=== PATIENT | female | born 1985 | race Two or more races ===

== ENCOUNTER 2020-06-19 09:34 | Outpatient (REF) | payer OTHER, SELFPAY | END 2020-06-19 09:35 | disposition home or self-care (01) | LOC: HO.LAB 09:34 | PROVIDERS: PCP Internal Medicine; Visit Provider Internal Medicine | DX: Z20.828 Contact with and (suspected) exposure to other viral communicable diseases (principal) | CPT/HCPCS: 87635 ==

== ENCOUNTER 2020-07-18 12:42 | Outpatient (REF) | payer OTHER, SELFPAY | END 2020-07-18 12:43 | disposition home or self-care (01) | LOC: HO.LAB 12:42 | PROVIDERS: Visit Provider Internal Medicine | DX: Z20.828 Contact with and (suspected) exposure to other viral communicable diseases (principal) | CPT/HCPCS: C9803; U0003 ==

== ENCOUNTER → 2021-01-18 08:39 | Outpatient (BNVA) | payer OTHER, SELFPAY | PROVIDERS: PCP Internal Medicine; Visit Provider Surgery | DX: E66.01 Morbid (severe) obesity due to excess calories (principal); Z68.41 Body mass index [BMI] 40.0-44.9, adult | CPT/HCPCS: 99202 ==

== ENCOUNTER → 2021-01-30 08:16 | Outpatient (BNVA) | payer OTHER, SELFPAY | PROVIDERS: PCP Internal Medicine; Visit Provider Surgery | DX: E66.01 Morbid (severe) obesity due to excess calories (principal); Z68.41 Body mass index [BMI] 40.0-44.9, adult | CPT/HCPCS: 99212 ==

== ENCOUNTER 2021-07-02 22:03 | Emergency (ER) | payer OTHER, SELFPAY ==
[2021-07-02 22:23] VITALS: BP 138/97; PULSE 106; RESP 20; TEMP 37.2; O2SAT 98; BMI 41.1
[2021-07-02 23:12] LABS: Influenza A PCR NEGATIVE (Negative); Influenza B PCR NEGATIVE (Negative); Resp Syncy Virus RNA Qual PCR POSITIVE (Negative); SARS COV2 PCR INHOUSE NEGATIVE (Negative)
--- NOTE | 2021-07-02 23:53 | ED_ITS ---
HPI - URI/Sore Throat General Chief Complaint: Upper Respiratory Symptoms Stated Complaint: congestion, ear pain Time Seen by Provider: 07/02/21 23:00 Source: patient Mode of arrival: ambulatory Limitations: no limitations History of Present Illness HPI Narrative: Patient vaccinated against COVID in 01/19 , complaining of cold congestion earache for last 2 days dry cough no fever no rash. Patient niece were positive for RSV for last few days. Patient also complaining of right ear pain feels right ear is full for last 2 days Related Data Home Medications Medication Instructions Recorded Confirmed ibuprofen 600 mg tablet 600 mg PO TID 01/18/21 01/30/21 Previous Rx's Medication Instructions Recorded azithromycin 250 mg tablet 250 mg PO DAILY 4 Days #4 tab 07/03/21 (Zithromax Z-William) codeine 10 mg-guaifenesin 100 mg/5 10 ml PO Q4-6H PRN #237 ml 07/03/21 mL oral liquid Allergies Allergy/AdvReac Type Severity Reaction Status Date / Time Penicillins [PENICILLINS] Allergy Unknown PASSED OUT Verified 07/02/21 22:53 Review of Systems Review of Systems: Yes all other systems are reviewed and are negative [facility] Past Medical History Medical History Morbid obesity due to excess calories Surgical History History of extraction of renal calculus Family History Family History Mother Hypertension Heart disease Anxiety Asthma Father No problems noted. Brother No problems noted. Brother No problems noted. Brother No problems noted. Brother No problems noted. Brother No problems noted. Sister No problems noted. Sister No problems noted. Sister No problems noted. Sister No problems noted. Sister No problems noted. Sister No problems noted. Son No problems noted. Social History Social History Alcohol intake: never Patient Tobacco Use Status: Never used Tobacco Advance Directives: No Patient : No Physical Exam Vital Signs: Vital Signs: Last Vital Signs Temp 98.9 F 07/02/21 22:23 Pulse 106 H 07/02/21 22:23 Resp 20 07/02/21 22:23 BP 138/97 H 07/02/21 22:23 Pulse Ox 98 07/02/21 22:23 Body Mass Index 41.1 Appearance: Alert. Oriented X3. No acute distress. Eyes: No pallor or icterus ENT: Pharynx normal. Oral Mucosa moist tympanic membrane intact, R TM is erythematous and dull Neck: Normal inspection. Neck supple. CVS: Normal heart rate and rhythm. Pulses normal. Respiratory: No respiratory distress. Equal air entry bilateral, no wheezing/rales/rhonchi Abdomen: Soft and nontender. Bowel sounds are present, no mass palpable, no CVA tenderness Skin: Skin warm and dry. Normal skin color. Normal skin turgor. Extremities: No lower extremity edema. No calf tenderness Neuro: Oriented X 3. MDM - URI/Sore Throat Differential Diagnosis Differential diagnosis: Likely upper respiratory infection and otitis media Lab Data Attestation: I reviewed the patient's lab results. Labs: Lab Results 07/02/21 Range/Units 22:30 Influenza Type A (PCR) NEGATIVE (Negative) Influenza Type B (PCR) NEGATIVE (Negative) RSV RNA Qual (PCR) POSITIVE A (Negative) SARS-CoV-2 RNA (RT-PCR) NEGATIVE (Negative) Discharge Plan Discharge Clinical Impression: RSV bronchitis Otitis media, right Qualifiers: Otitis media type: suppurative Chronicity: acute Recurrence: non-recurrent Spontaneous tympanic membrane rupture: without spontaneous rupture Qualified Code(s): H66.001 - Acute suppurative otitis media without spontaneous rupture of ear drum, right ear Patient Disposition: Home, Self-Care Instructions: Respiratory Syncytial Virus (ED), Ear Infection (ED) Additional Instructions: Rest at home Cough syrup as advised Antibiotic for right ear infection Tylenol/Motrin for fever Follow with PCP if not better Prescriptions: New codeine-guaifenesin 10-100 mg/5 mL liquid 10 ml PO Q4-6H PRN (Reason: cough) Qty: 237 RF: 0 azithromycin [Zithromax Z-William] 250 mg tablet 250 mg PO DAILY 4 Days Qty: 4 RF: 0 No Action ibuprofen 600 mg tablet 600 mg PO TID RF: 0
[2021-07-03] MEDS: Azithromycin 500 MG TABLET PO (00:16)
[2021-07-03 00:27] VITALS: BP 145/90; PULSE 91; RESP 17; O2SAT 97
== END 2021-07-03 00:29 | disposition home or self-care (01) ==
PROVIDERS: Emergency Provider Internal Medicine; PCP Internal Medicine
DX: J20.5 Acute bronchitis due to respiratory syncytial virus (principal); H66.001 Acute suppurative otitis media without spontaneous rupture of ear drum, right ear; Z20.822 Contact with and (suspected) exposure to COVID-19
CPT/HCPCS: 0241U; 36415; 99283; 99284

== ENCOUNTER → 2021-09-25 07:56 | Outpatient (BNVA) | payer OTHER, SELFPAY | PROVIDERS: PCP Internal Medicine; Referring Provider Internal Medicine; Visit Provider Physician Assistant ==

== ENCOUNTER → 2021-10-08 10:26 | Outpatient (BNVA) | payer OTHER, SELFPAY | PROVIDERS: PCP Internal Medicine; Referring Provider Internal Medicine; Visit Provider Physician Assistant Surgical ==

== ENCOUNTER 2021-12-18 01:23 | Emergency (ER) | payer OTHER, SELFPAY ==
[2021-12-18 01:32] VITALS: BP 131/91; PULSE 75; RESP 16; TEMP 36.2; O2SAT 99; BMI 38.9
[2021-12-18] MEDS: diphenhydrAMINE HCL 25 MG TABLET 50 MG PO (02:02)
--- NOTE | 2021-12-18 02:04 | PC.NURSE ---
at bedside for primary eval.
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
[2021-12-18] MEDS: predniSONE 10 MG TABLET 50 MG PO (02:35)
[2021-12-18] MEDS: Famotidine 20 MG TABLET PO (02:35)
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
== END 2021-12-18 03:50 | disposition home or self-care (01) ==
PROVIDERS: Emergency Provider Student in an Organized Health Care Education/Training Program; PCP Internal Medicine
DX: L50.0 Allergic urticaria (principal); R06.02 Shortness of breath; Z79.899 Other long term (current) drug therapy
CPT/HCPCS: 99283; Q0163

== ENCOUNTER 2022-01-02 01:15 | Emergency (ER) | payer OTHER, SELFPAY ==
[2022-01-02 01:29] VITALS: BP 141/91; PULSE 84; RESP 20; TEMP 36.6; O2SAT 99; BMI 41.1
[2022-01-02 01:36] LABS: Appearance Urine CLEAR; Color Urine YELLOW; Glucose Urine UA NEG (NEG); Leukocyte Esterase Urine NEG (NEG); Nitrite Urine NEG (NEG); Specific Gravity - Urine >= 1.030 (1.005-1.025); Urine Blood NEG (NEG); Urine Ketones NEG (NEG); Urine Protein NEG (NEG-TRACE)
[2022-01-02 01:42] LABS: RBC Urine 0 /HPF (0); Squamous Epithelial Cell Urine 2+ /LPF
[2022-01-02 01:43] LABS: Bacteria Urine 1+ /LPF; Mucus Urine 3+ /LPF
--- NOTE | 2022-01-02 04:20 | ED_ITS ---
HPI - General Adult General Chief complaint: Dental/Oral Stated complaint: dental pain Time Seen by Provider: 01/02/22 04:10 Source: patient Mode of arrival: ambulatory History of Present Illness HPI narrative: 36-year-old female who presents with complaints of left lower tooth pain and states that she is on a waiting list to get the tooth removed. She denies any associated difficulty breathing, swallowing, fevers, or chills. She then proceeds to states that she is having some lower abdominal discomfort and states that she has had 2 positive test but denies any vaginal bleeding. Related Data Home Medications Medication Instructions Recorded Confirmed ibuprofen 600 mg tablet 600 mg PO TID 01/18/21 01/30/21 Previous Rx's Medication Instructions Recorded azithromycin 250 mg tablet 250 mg PO DAILY 4 Days #4 tab 07/03/21 (Zithromax Z-William) codeine 10 mg-guaifenesin 100 mg/5 10 ml PO Q4-6H PRN #237 ml 07/03/21 mL oral liquid Allergies Allergy/AdvReac Type Severity Reaction Status Date / Time Penicillins [PENICILLINS] Allergy Unknown PASSED OUT Verified 07/02/21 22:53 Review of Systems Review of Systems: Pertinent positives and negatives as stated in HPI 10 point review of systems is otherwise negative. [facility] Past Medical History Source: nursing notes reviewed Medical History Morbid obesity due to excess calories Surgical History History of extraction of renal calculus Family History Family History Mother Hypertension Heart disease Anxiety Asthma Father No problems noted. Brother No problems noted. Brother No problems noted. Brother No problems noted. Brother No problems noted. Brother No problems noted. Sister No problems noted. Sister No problems noted. Sister No problems noted. Sister No problems noted. Sister No problems noted. Sister No problems noted. Son No problems noted. Social History Social History Alcohol intake: never Patient Tobacco Use Status: Never used Tobacco Advance Directives: No Advance Directives Information Provided: Yes Physical Exam ED Vital Signs: Vital Signs - 24 hr 05/04/22 01:29 Temperature 97.9 F Pulse Rate 84 Respiratory Rate 20 Blood Pressure 141/91 H Pulse Oximetry 99 BMI result Body Mass Index 41.1 VITAL SIGNS: Reviewed. GENERAL: Well developed, well nourished, in no acute distress. HEAD: Normocephalic/atraumatic EYES: PERRLA, EOMI EARS: Ext canals without abnormality OROPHARYNX: no oral lesions noted, posterior pharynx clear, there is an obvious cavity in the left lower 1st molar without gingival edema, no trismus NECK: Supple, no adenopathy LUNGS: Normal breath sounds. No adventitious sounds or accessory muscle use. SpO2<99> CARDIOVASCULAR: Regular rate and rhythm without noted murmurs, no JVD or lower extremity edema. ABDOMEN: Soft, non-tender, non-distended with bowel sounds. SKIN: Inspection of the skin reveals no rashes NEUROLOGIC: Alert and oriented x 4. Strength and sensation to light touch were grossly intact x 4. Course Course Course Narrative: 36-year-old female with history and clinical presentation consistent with toothache and obvious dental caries. On evaluation of patient for UTI or urine there is no infection of the urine and patient's beta-hCG is 129. Patient was given Lollicaines for her tooth pain. Medical Decision Making Lab Data Labs: Lab Results 01/02/22 01/02/22 Range/Units 01:31 05:05 Beta HCG, Quant 129 mIU/mL Urine Color YELLOW Urine Appearance CLEAR Urine pH 6.0 (5.0-8.0) Ur Specific Belle >= 1.030 H (1.005-1.025) Urine Protein NEG (NEG-TRACE) MG/DL Urine Glucose (UA) NEG (NEG) MG/DL Urine Ketones NEG (NEG) MG/DL Urine Blood NEG (NEG) Urine Nitrite NEG (NEG) Ur Leukocyte Esterase NEG (NEG) Urine RBC 0 (0) /HPF Urine WBC 1-4 (0-4) /HPF Ur Squamous Epith Cells 2+ /LPF Urine Bacteria 1+ /LPF Urine Mucus 3+ /LPF Discharge Plan Discharge Clinical Impression: Toothache, Dental caries, Patient Disposition: Home, Self-Care Instructions: Tooth Extraction (DC), Toothache (ED), (ED) Additional Instructions: 1. You are , you should start taking vitamins. 2. Take [id number] Tylenol as needed for tooth pain and follow-up with your dentist for definitive treatment of your tooth. Return to the ER for worsening symptoms. Prescriptions: No Action codeine-guaifenesin 10-100 mg/5 mL liquid 10 ml PO Q4-6H PRN (Reason: cough) Qty: 237 0RF azithromycin [Zithromax Z-William] 250 mg tablet 250 mg PO DAILY 4 Days Qty: 4 0RF Rx Instructions: start on day 2 of therapy ibuprofen 600 mg tablet 600 mg PO TID 0RF
[2022-01-02 05:34] LABS: HCG Quantitative 129 mIU/mL
[2022-01-02] MEDS: Acetaminophen 325 MG TABLET 975 MG PO (06:07)
== END 2022-01-02 06:10 | disposition home or self-care (01) ==
PROVIDERS: Emergency Provider Student in an Organized Health Care Education/Training Program
DX: O99.619 Diseases of the digestive system complicating pregnancy, unspecified trimester (principal); K02.9 Dental caries, unspecified; Z3A.00 Weeks of gestation of pregnancy not specified
CPT/HCPCS: 36415; 81001; 84702; 99283

== ENCOUNTER 2022-01-12 08:30 | Emergency (ER) | payer OTHER, SELFPAY ==
--- NOTE | ~2022-01-12 | US_ITS ---
EXAMINATION: US OBSTETRICAL ULTRASOUND CLINICAL INFORMATION: 6 weeks . Heavy vaginal bleeding. COMPARISON: None. LMP: 10/30/2021. Gestational age by maternal dates is 10 weeks 4 days. Estimated date of delivery by maternal dates is 08/06/2022. TECHNIQUE: Transabdominal and transvaginal first trimester OB ultrasound. Transvaginal exam was performed for better visualization of the gestational sac and ovaries. FINDINGS: The uterus is normal in size and shape. There is an intrauterine gestational sac and yolk sac. Mean sac diameter suggests gestational age of 5 weeks 3 days. No pole is seen. This may be due to early gestational age. The maternal ovaries are normal. There is no fluid in the pelvis. US/US OB pelvic and transvaginal IMPRESSION: Intrauterine gestational sac and yolk sac. Mean sac diameter suggests gestational age of 5 weeks 3 days. This is behind date from LMP. No pole seen.
[2022-01-12 09:28] VITALS: BP 130/80; PULSE 79; RESP 18; TEMP 37; O2SAT 100; BMI 38.5
[2022-01-12 09:49] LABS: MANUAL DIFF FLAG NO
[2022-01-12 09:52] LABS: Basophils Percent Auto 0.4 % (0-2); Eosinophils Absolute Auto 0.2 X10*3/uL (0.0-0.4); Eosinophils Percent Auto 1.8 % (0-4); Hematocrit 40.1 % (37.0-47.0); Hemoglobin 13.1 g/dl (12.0-16.0); Imm Gran Abs Auto 0.05 X10*3/uL (0.00-0.03); Imm Gran Pct Auto 0.5 % (0.0-0.4); Lymphocytes Percent Auto 19.2 % (20-40); Mean Corpuscular HGB Conc 32.7 g/dl (31.0-35.0); Mean Corpuscular Hemoglobin 28.9 pg (27.0-33.0); Mean Corpuscular Volume 88.5 fL (80.0-98.0); Mean Platelet Volume 8.5 fL (9.4-12.3); Monocytes Absolute Auto 0.8 X10*3/uL (0.1-1.2); Monocytes Percent Auto 7.1 % (2-11); Neutrophils Absolute Auto 7.5 x10*3/uL (2.0-8.3); Platelet Count 390 X10*3/uL (160-400); Red Blood Count 4.53 X10*6/uL (4.20-5.50); Red Cell Distribution Width 13.6 % (11.0-16.0); White Blood Count 10.5 X10*3/uL (4.8-10.8)
[2022-01-12 10:12] LABS: Alanine Aminotransferase 27 U/L (0-31); Albumin Level 3.4 g/dL (3.5-5.0); Alkaline Phosphatase 69 U/L (39-117); Anion Gap 10 (12-20); Aspartate Amino Transferase 20 U/L (5-31); Bilirubin Total 0.5 mg/dL (0.0-1.0); Blood Urea Nitrogen 11 mg/dL (9-16); Calcium 8.9 mg/dL (8.4-10.2); Carbon Dioxide 24 mmol/L (22-29); Chloride 107 mmol/L (96-108); Creatinine Clr Calc Pharmacy 131.5; Estimated Glomerular Filt Rate > 60; Glucose Random 86 mg/dL (60-115); Potassium 4.4 mmol/L (3.3-5.1); Sodium 137 mmol/L (135-145); Total Protein 7.3 g/dL (6.5-8.0)
[2022-01-12 10:18] LABS: HCG Quantitative 4214 mIU/mL
[2022-01-12 10:20] LABS: Appearance Urine CLOUDY; Color Urine YELLOW; Glucose Urine UA NEG (NEG); Leukocyte Esterase Urine NEG (NEG); Nitrite Urine NEG (NEG); PH 6.5 (5.0-8.0); Specific Gravity - Urine 1.025 (1.005-1.025); UACC Culture Trigger NO; Urine Blood 3+ (NEG); Urine Ketones NEG (NEG); Urine Protein 1+ MG/DL (NEG-TRACE)
[2022-01-12 10:30] LABS: Bacteria Urine 1+ /LPF; Mucus Urine 1+ /LPF; Squamous Epithelial Cell Urine 2+ /LPF; WBC Urine 0 /HPF (0-4)
--- NOTE | 2022-01-12 14:23 | ED_ITS ---
HPI - General Chief complaint: Vaginal Bleeding Stated complaint: 6wks preg heavy vaginal bleeding Time Seen by Provider: 01/12/22 12:07 Source: patient Mode of arrival: ambulatory Limitations: no limitations History of Present Illness HPI Narrative: 36-year-old female with a past medical history of obesity who is currently [id number] with her last menstrual period on November 04 presenting to the ED with complaints of suprapubic/left lower quadrant abdominal cramping with associated intermittent vaginal bleeding That she noticed this morning. She reports that when she wiped she noticed some blood on the toilet tissue and to clots in the toilet. And she reports when she recently just used the bathroom a she was here in the waiting room she had brown colored blood no further clots. She denies any abdominal cramping at this time. She reports approximately 2-3 year she is approximately 4 and half months and had a miscarriage unknown reason why. Reports she has never had any other pregnancies other than the 1 today and the 1 where she had the miscarriage. She reports that she went to her primary care provider at [facility] on Friday due to having some vaginal bleeding that they and they did an ultrasound and they were able to see the sac and they did blood work although they told her that she would need repeat blood work and ultrasound in 2 weeks otherwise she has not seen anyone else for this . She denies any fevers, chills, dizziness, headaches, neck pain / stiffness, trouble swallowing or breathing, chest pain or shortness of breath, dyspnea on exertion, orthopnea, palpitations, paresthesias, back pain, dysuria, abnormal vaginal discharge, black or bloody stools, lower extremity edema or calf tenderness, recent travel or sick contacts or any other symptoms complaints or concerns at this time. MD Complaint: abdominal pain and vaginal bleeding Onset (ago): hour(s) Pain Consistency: intermittent Severity: mild Quality: Cramping Relieving factors: none Exacerbating factors: none Associated symptoms: vaginal bleeding and abdominal pain Vaginal discharge: none Vaginal bleeding: light Date of Last Menstrual Period: 11/04/21 Patient : Yes OB History - Previous Pregnancies: miscarriage Related Data : 2 Para: 0 Total number of abortions (spontaneous and elective): 1 Home Medications Medication Instructions Recorded Confirmed ibuprofen 600 mg tablet 600 mg PO TID 01/18/21 01/30/21 Previous Rx's Medication Instructions Recorded azithromycin 250 mg tablet 250 mg PO DAILY 4 Days #4 tab 07/03/21 (Zithromax Z-William) codeine 10 mg-guaifenesin 100 mg/5 10 ml PO Q4-6H PRN #237 ml 07/03/21 mL oral liquid Allergies Allergy/AdvReac Type Severity Reaction Status Date / Time Penicillins [PENICILLINS] Allergy Unknown PASSED OUT Verified 01/12/22 09:28 Review of Systems Review of Systems: Constitutional : No Fever, No Chills ENT/Mouth : No sore throat, No Rhinorrhea Eyes: No Eye Pain, No Redness Cardiovascular : No Chest Pain, No SOB Respiratory : No Cough, No Sputum, No Wheezing Gastrointestinal : No Nausea, No Vomiting, No Diarrhea, + abdominal pain, Genitourinary : + irregular bleeding, No Dysuria, No Urinary Frequency, No pelvic pain, No vaginal discharge, no hematuria Musculoskeletal : No Myalgias Skin : No rash Neuro : No Weakness, No Headache Psych : No Anxiety/Panic, No Depression Heme/Lymph: No bruising, No Lymphadenopathy Endocrine : No Polyuria, No Polydipsia Yes all other systems are reviewed and are negative [facility] Past Medical History Attestation statement: The following information was validated with the patient. Medical History Morbid obesity due to excess calories Surgical History History of extraction of renal calculus : 2 Para: 0 Total number of abortions (spontaneous and elective): 1 Date of Last Menstrual Period: 11/04/21 Family History Family History Mother Hypertension Heart disease Anxiety Asthma Father No problems noted. Brother No problems noted. Brother No problems noted. Brother No problems noted. Brother No problems noted. Brother No problems noted. Sister No problems noted. Sister No problems noted. Sister No problems noted. Sister No problems noted. Sister No problems noted. Sister No problems noted. Son No problems noted. Social History Social History Alcohol intake: never Patient Tobacco Use Status: Never used Tobacco Advance Directives: No Advance Directives Information Provided: No Patient : Yes Physical Exam Vital Signs: Vital Signs: Last Vital Signs Temp 98.4 F 01/12/22 15:27 Pulse 93 01/12/22 15:27 Resp 18 01/12/22 15:27 BP 123/72 01/12/22 15:27 Pulse Ox 100 01/12/22 15:27 BMI result Body Mass Index 38.5 vital signs have been reviewed as normal and appeared to be correct. Blood pressure normal. Heart rate normal. Respiration rate normal. Temperature normal. Oxygen saturation normal. Appearance: Alert. Oriented X3. No acute distress. Head: Normal external exam. Normocephalic. Atraumatic. Eyes: PERRLA. EOMI. Conjunctiva and sclera normal. Eyelids normal. ENT: Pharynx normal. Uvula midline. Moist mucous membranes. No trismus noted. No drooling noted. No muffled voice noted. Neck: Normal inspection. Neck supple. FROM. No adenopathy. Thyroid Normal. No meningeal signs. No neck mass noted. CVS: Normal heart rate and rhythm. Heart sound normal. No murmurs noted. Pulses normal throughout. Respiratory: No respiratory distress. Painless inspiration. Breath sounds normal. No wheezes/rales/rhonchi noted. Chest nontender. No accessory muscle usage noted or decreased air movement noted. Abdomen: Soft and nontender. Bowel sounds normal in all 4 quadrants. No distention noted. No organomegaly noted. No visible injury noted. : Supervised by PALOMO Osuna, Normal external appearance of urethra. No lesions/lacerations or discharge or tenderness noted. Speculum exam normal linda earance/palpation of vagina normal. patient does have some dark brown/ maroon colored vaginal discharge/ bleeding although no active bleeding in the cervical eyes is completely closed and no active bleeding from the cervical Os. otherwise no other abnormal discharge noted.Otherwise no vaginal erythema. No foreign bodies noted. No vaginal laceration/lesions or active bleeding noted. No tissue present in vagina. No vaginal mass noted. No vaginal swelling noted. No vaginal tenderness noted. Normal appearance of cervix. Normal palpation of cervix. Cervical os is closed. No abnormal cervical discharge noted. No cervical lesion/mass. No Bartholin cyst noted. No cervical motion tenderness noted. Negative chandelier sign. Normal bimanual exam. Uterine size normal. Bladder normal to palpation. Uterine consistency normal. Normal cervical palpation. Uterine mobility normal. Uterine shape normal. Normal adnexa. Normal rectovaginal exam. Back: No CVA tenderness. Full range of motion noted. Skin: Skin warm and dry. Normal skin color. Normal skin turgor. No rashes/lesions/lacerations noted. Extremities: No lower extremity edema. Extremities exhibit normal range of mot ion. Extremities nontender. Neuro: Oriented X 3. No motor deficit. No sensory deficit. Reflexes normal. Course Course Course Narrative: 14:15pm - 36-year-old female who is currently [id number] with her LMP on November 04 presenting to the ED with complaints of suprapubic/left lower quadrant abdominal cramping with associated intermittent vaginal bleeding That she noticed this morning. She reports that when she wiped she noticed some blood on the toilet tissue and to clots in the toilet. And she reports when she recently just used the bathroom a she was here in the waiting room she had brown colored blood no further clots. She denies any abdominal cramping at this time. She reports approximately 2-3 year she is approximately 4 and half months and had a miscarriage unknown reason why. Reports she has never had any other pregnancies other than the 1 today and the 1 where she had the miscarriage. She reports that she went to her primary care provider at [facility] on Friday due to having some vaginal bleeding that they and they did an ultrasound and they were able to see the sac and they did blood work although they told her that she would need repeat blood work and ultrasound in 2 weeks otherwise she has not seen anyone else for this . - Labs reviewed which were taken while the patient was in the waiting room and revealed a serum quant of 4214 otherwise all other labs are within normal limits. Patient's serum quant is 01/02/2022 was 129. UA today reveals blood otherwise no evidence of UTI. Awaiting OB transvaginal/pelvic ultrasound Reevaluation(s) Reevaluation #1: - Ultrasound revealed intrauterine gestational sac and yolk sac with a gestational age of 5 weeks and 3 days although no pole was seen. - Therefore consulted with Dr. Baker OBGYN and he recommended giving the patient has spontaneous warnings and to come back if vaginal bleeding increases along with follow-up appointment in 2 days with repeat hCG levels. Awaiting the patient's blood type for possible RHOgam. patient understands agrees with this plan. Time: 14:57 Reevaluation #2: Patient's blood type is O-positive. Therefore no RHOGam indicated at this time. Will DC home with spontaneous warnings and instructions return if vaginal bleeding increases and to follow-up with PCP/ OBGYN in 2 days for repeat hCG levels. Patient understands agrees with this plan. Time: 15:55 MDM - OB/Uterine Contractions Medical Records Attestation: I reviewed the patient's medical records. Lab Data Attestation: I reviewed the patient's lab results. Result diagrams: 01/12/22 09:39 01/12/22 09:39 Labs: Lab Results 01/12/22 01/12/22 01/12/22 Range/Units 09:39 09:39 10:03 WBC 10.5 (4.8-10.8) X10*3/uL RBC 4.53 (4.20-5.50) X10*6/uL Hgb 13.1 (12.0-16.0) g/dl Hct 40.1 (37.0-47.0) % MCV 88.5 (80.0-98.0) fL MCH 28.9 (27.0-33.0) pg MCHC 32.7 (31.0-35.0) g/dl RDW 13.6 (11.0-16.0) % Plt Count 390 (160-400) X10*3/uL MPV 8.5 L (9.4-12.3) fL Immature Gran % (Auto) 0.5 H (0.0-0.4) % Neut % (Auto) 71.0 (45-73) % Lymph % (Auto) 19.2 L (20-40) % Stanton % (Auto) 7.1 (2-11) % Eos % (Auto) 1.8 (0-4) % Baso % (Auto) 0.4 (0-2) % Lymph # (Auto) 2.0 (1.2-4.9) X10*3/uL Stanton # (Auto) 0.8 (0.1-1.2) X10*3/uL Eos # (Auto) 0.2 (0.0-0.4) X10*3/uL Baso # (Auto) 0.0 (0.0-0.2) X10*3/uL Abs Immat Gran (auto) 0.05 H (0.00-0.03) X10*3/uL Absolute Neuts (auto) 7.5 (2.0-8.3) x10*3/uL Absolute Nucleated RBC 0.000 (0.0-0.012) X10*3/uL Nucleated RBC % (auto) 0.0 (0.0-0.2) /100WBC Sodium 137 (135-145) mmol/L Potassium 4.4 (3.3-5.1) mmol/L Chloride 107 (96-108) mmol/L Carbon Dioxide 24 (22-29) mmol/L Anion Gap 10 L (12-20) BUN 11 (9-16) mg/dL Creatinine 0.68 (0.5-1.4) mg/dL Estim Creat Clear Calc 131.5 Estimated GFR > 60 Random Glucose 86 (60-115) mg/dL Calcium 8.9 (8.4-10.2) mg/dL Total Bilirubin 0.5 (0.0-1.0) mg/dL AST 20 (5-31) U/L ALT 27 (0-31) U/L Alkaline Phosphatase 69 (39-117) U/L Total Protein 7.3 (6.5-8.0) g/dL Albumin 3.4 L (3.5-5.0) g/dL Beta HCG, Quant 4214 mIU/mL Urine Color YELLOW Urine Appearance CLOUDY Urine pH 6.5 (5.0-8.0) Ur Specific [place] 1.025 (1.005-1.025) Urine Protein 1+ H (NEG-TRACE) MG/DL Urine Glucose (UA) NEG (NEG) MG/DL Urine Ketones NEG (NEG) MG/DL Urine Blood 3+ H (NEG) Urine Nitrite NEG (NEG) Ur Leukocyte Esterase NEG (NEG) Urine RBC 15-29 H (0) /HPF Urine WBC 0 (0-4) /HPF Ur Squamous Epith Cells 2+ /LPF Urine Bacteria 1+ /LPF Urine Mucus 1+ /LPF Urine Test Blood Type 01/12/22 01/12/22 Range/Units 10:03 14:59 WBC (4.8-10.8) X10*3/uL RBC (4.20-5.50) X10*6/uL Hgb (12.0-16.0) g/dl Hct (37.0-47.0) % MCV (80.0-98.0) fL MCH (27.0-33.0) pg MCHC (31.0-35.0) g/dl RDW (11.0-16.0) % Plt Count (160-400) X10*3/uL MPV (9.4-12.3) fL Immature Gran % (Auto) (0.0-0.4) % Neut % (Auto) (45-73) % Lymph % (Auto) (20-40) % Stanton % (Auto) (2-11) % Eos % (Auto) (0-4) % Baso % (Auto) (0-2) % Lymph # (Auto) (1.2-4.9) X10*3/uL Stanton # (Auto) (0.1-1.2) X10*3/uL Eos # (Auto) (0.0-0.4) X10*3/uL Baso # (Auto) (0.0-0.2) X10*3/uL Abs Immat Gran (auto) (0.00-0.03) X10*3/uL Absolute Neuts (auto) (2.0-8.3) x10*3/uL Absolute Nucleated RBC (0.0-0.012) X10*3/uL Nucleated RBC % (auto) (0.0-0.2) /100WBC Sodium (135-145) mmol/L Potassium (3.3-5.1) mmol/L Chloride (96-108) mmol/L Carbon Dioxide (22-29) mmol/L Anion Gap (12-20) BUN (9-16) mg/dL Creatinine (0.5-1.4) mg/dL Estim Creat Clear Calc Estimated GFR Random Glucose (60-115) mg/dL Calcium (8.4-10.2) mg/dL Total Bilirubin (0.0-1.0) mg/dL AST (5-31) U/L ALT (0-31) U/L Alkaline Phosphatase (39-117) U/L Total Protein (6.5-8.0) g/dL Albumin (3.5-5.0) g/dL Beta HCG, Quant mIU/mL Urine Color Urine Appearance Urine pH (5.0-8.0) Ur Specific [place] (1.005-1.025) Urine Protein (NEG-TRACE) MG/DL Urine Glucose (UA) (NEG) MG/DL Urine Ketones (NEG) MG/DL Urine Blood (NEG) Urine Nitrite (NEG) Ur Leukocyte Esterase (NEG) Urine RBC (0) /HPF Urine WBC (0-4) /HPF Ur Squamous Epith Cells /LPF Urine Bacteria /LPF Urine Mucus /LPF Urine Test Cancelled Blood Type O Positive Imaging Data Ob transvaginal/pelvic ultrasound: Attestation: I personally reviewed and interpreted this imaging study as follows: Radiologist's impression: FINDINGS: The uterus is normal in size and shape. There is an intrauterine gestational sac and yolk sac. Mean sac diameter suggests gestational age of 5 weeks 3 days. No pole is seen. This may be due to early gestational age. The maternal ovaries are normal. There is no fluid in the pelvis. US/US OB pelvic and transvaginal IMPRESSION: Intrauterine gestational sac and yolk sac. Mean sac diameter suggests gestational age of 5 weeks 3 days. This is behind date from LMP. No pole seen. Discharge Plan Discharge Clinical Impression: Positive test, Vaginal bleeding during Patient Disposition: Home, Self-Care Instructions: Threatened Miscarriage (ED), (ED) Additional Instructions: if you have any increase in vaginal bleeding or any worsening abdominal pain you need to return immediately. Otherwise you need repeat blood work in approximately 2 days I placed an order in the computer if you come to our OBGYN you should go on Friday morning to have your repeat blood work and call to make a follow-up appointment with either our OBGYN or your PCP. Prescriptions: No Action codeine-guaifenesin 10-100 mg/5 mL liquid 10 ml PO Q4-6H PRN (Reason: cough) Qty: 237 0RF azithromycin [Zithromax Z-William] 250 mg tablet 250 mg PO DAILY 4 Days Qty: 4 0RF Rx Instructions: start on day 2 of therapy ibuprofen 600 mg tablet 600 mg PO TID 0RF Referrals: Nadine Bowie MD [Primary Care Provider] - 2 days ( repeat serum quant level) Pacheco Patton MD [Physician] - 2 days ( repeat serum quant level)
--- NOTE | 2022-01-12 15:01 | PM.GYNCN ---
RESIDENT CARE DIRECTOR - CN: HPI Data of Consult Consult date: 01/12/22 Primary Care Provider: Nadine Bowie MD Consult Narrative Narrative: I was consulted on Amanda Guerrero who is a 36 year old female [id number] with her last menstrual period on 11/04/2021 making her by today 8 at 9 weeks and 6 days of gestation presenting to the ED with complaints of suprapubic/left lower quadrant abdominal cramping with associated intermittent vaginal spotting that started morning? .? She denies any abdominal cramping at this time.? She had some vaginal bleeding 5 days ago, ultrasound was done through her PCP , the report is not available but she states that there was an intrauterine gestation sac , the plan was to repeat hCG and ultrasound in 2 weeks. She denies any fevers, chills, no other complaints. HCG was 4214 up from 129 on 01/02 Rh positive. Ultrasound showed intrauterine gestational sac and yolk sac mean gestation diameter suggestive of 5 weeks and 3 days of gestation behind from the LMP date no pole cc:: CC: [employer] - Review of Systems Review of Systems ROS Unobtainable: All systems reviewed & are unremarkable except as noted in HPI and below Cardiovascular: Denies Palpatations, Loss of consciousness or Chest pain Respiratory: Denies Cough, Wheezing or Shortness of breath Musculoskeletal: Denies Low back pain Gastrointestinal: Denies Heartburn, Constipation, Diarrhea, Nausea or Vomiting Genitourinary: Denies Pain with urination, Burning with urination or Urinary frequency Neurological: Denies Migranes Psychological: Denies Depression OB PMFSH Past Medical History Medical History Morbid obesity due to excess calories Family History Family History Mother Hypertension Heart disease Anxiety Asthma Father No problems noted. Brother No problems noted. Brother No problems noted. Brother No problems noted. Brother No problems noted. Brother No problems noted. Sister No problems noted. Sister No problems noted. Sister No problems noted. Sister No problems noted. Sister No problems noted. Sister No problems noted. Son No problems noted. Surgical History Surgical History History of extraction of renal calculus Social History Social History Alcohol intake: never Patient Tobacco Use Status: Never used Tobacco Advance Directives: No Advance Directives Information Provided: No Patient : Yes Meds Allergies Allergy/AdvReac Type Severity Reaction Status Date / Time Penicillins [PENICILLINS] Allergy Unknown PASSED OUT Verified 01/12/22 09:28 Home Medications Medication Instructions Recorded Confirmed Last Taken Type ibuprofen 600 mg tablet 600 mg PO TID 01/18/21 01/30/21 Unknown History RESIDENT CARE DIRECTOR Physical Exam Vitals Vital signs: Temp Pulse Resp BP Pulse Ox 98.6 F 79 18 130/80 100 01/12/22 09:28 01/12/22 09:28 01/12/22 09:28 01/12/22 09:28 01/12/22 09:28 BMI result Body Mass Index 38.5 Constitutional General Appearance: Healthy appearing, Well-nourished and Well-developed Psychiatric Mood and Affect: active and alert, normal mood and normal affect Skin Appearance: No rashes and No lesions Lungs Respiratory Effort: No intercostal retractions Auscultation: Clear to auscultation Cardiovascular Auscultation: RRR Abdomen Auscultation/Inspection/Palpation: Normal bowel sounds, Soft, Non-distended and No tenderness Additional Comments: Reported by LISA Moore no active bleeding no cervical tenderness uterine adnexal tenderness RESIDENT CARE DIRECTOR - Results Labs CBC & Chem 7: 01/12/22 09:39 01/12/22 09:39 Labs: Short CBC 01/12/22 Range/Units 09:39 WBC 10.5 (4.8-10.8) X10*3/uL Hgb 13.1 (12.0-16.0) g/dl Hct 40.1 (37.0-47.0) % Plt Count 390 (160-400) X10*3/uL BMP 01/12/22 09:39 Sodium 137 Potassium 4.4 Chloride 107 Carbon Dioxide 24 BUN 11 Creatinine 0.68 Calcium 8.9 Liver Function 01/12/22 Range/Units 09:39 Total Bilirubin 0.5 (0.0-1.0) mg/dL AST 20 (5-31) U/L ALT 27 (0-31) U/L Alkaline Phosphatase 69 (39-117) U/L Albumin 3.4 L (3.5-5.0) g/dL Urine 01/12/22 01/12/22 Range/Units 10:03 10:03 Urine Color YELLOW Urine Appearance CLOUDY Urine pH 6.5 (5.0-8.0) Ur Specific [place] 1.025 (1.005-1.025) Urine Protein 1+ H (NEG-TRACE) MG/DL Urine Glucose (UA) NEG (NEG) MG/DL Urine Test Cancelled Imaging US - abdomen: Radiologist's impression: ITS Impressions Pelvic/Transvag US 01/12/22 13:43 IMPRESSION: Intrauterine gestational sac and yolk sac. Mean sac diameter suggests gestational age of 5 weeks 3 days. This is behind date from LMP. No pole seen. Assessment and Plan (1) Vaginal bleeding during : Status: Acute Plan Recommended to call to LISA Moore the following management plan: SAB warnings to be given to the patient, she is to come back to the emergency room in case of persistence or worsening vaginal bleeding and/ or pelvic cramping. In the office in 48 hours with hCG quantitative. vitamin 1 tablet p.o. q.d. I spent a total of 25 minute reviewing the chart, communicating to the ER provider and documenting in the medical record. This note was generated with a voice recognition program. Some errors may have been overlooked during the review of this note. Sometimes these errors may affect the content or meaning of a given sentence.
[2022-01-12 15:27] VITALS: BP 123/72; PULSE 93; RESP 18; TEMP 36.9; O2SAT 100
[2022-01-13 02:59] LABS: CT PCR NOT DETECTED (Not Detect.); NG PCR NOT DETECTED (Not Detect.)
[2022-01-14 13:29] LABS: BV Int Neg Control Negative (Negative); BV Int Pos Control Positive (Positive)
== END 2022-01-12 16:12 | disposition home or self-care (01) ==
PROVIDERS: Physician Assistant Medical; Emergency Provider Emergency Medicine; PCP Internal Medicine
DX: O20.9 Hemorrhage in early pregnancy, unspecified (principal); O09.521 Supervision of elderly multigravida, first trimester; O99.211 Obesity complicating pregnancy, first trimester; E66.01 Morbid (severe) obesity due to excess calories; O09.291 Supervision of pregnancy with other poor reproductive or obstetric history, first trimester; Z3A.01 Less than 8 weeks gestation of pregnancy
CPT/HCPCS: 36415; 76801; 76817; 80053; 81001; 84702; 85025; 86900; 86901; 87480; 87491; 87510; 87591; 87660; 99283; 99284

== ENCOUNTER 2022-01-14 10:39 | Outpatient (REF) | payer OTHER, SELFPAY ==
[2022-01-14 11:37] LABS: HCG Quantitative 6538 mIU/mL
== END 2022-01-14 10:40 | disposition home or self-care (01) ==
LOC: HO.LAB 10:39
PROVIDERS: PCP Internal Medicine; Visit Provider Obstetrics & Gynecology
DX: O20.9 Hemorrhage in early pregnancy, unspecified (principal)
CPT/HCPCS: 36415; 84702; 99212

== ENCOUNTER 2022-01-23 13:46 | Outpatient (REF) | payer OTHER, SELFPAY ==
--- NOTE | ~2022-01-23 | US_ITS ---
EXAMINATION: US OBSTETRICAL ULTRASOUND CLINICAL INFORMATION: Early . Confirm IUP. COMPARISON: Previous exam 01/12/2022. LMP: Not available. Gestational age by maternal dates is . Estimated date of delivery by maternal dates is . TECHNIQUE: Transabdominal first trimester OB ultrasound FINDINGS: There is a single intrauterine gestational sac with visible yolk sac, embryo/fetus, and cardiac activity. There is no significant subchorionic hemorrhage or hematoma. HR: 143 beats per minute. CRL (crown rump length): 1.4 cm (7 weeks 5 days +/- 4 days). YOLI (estimated date of delivery): 09/06/2022 +/- 4 days. MATERNAL ADNEXA: The right maternal ovary measures 3.8 x 3 x 1.9 cm. The left maternal ovary measures 2.3 x 2.9 x 2 cm. There is no significant maternal adnexal mass. No maternal pelvic ascites. US/US OB <= 14 weeks fetus IMPRESSION: 1. Single intrauterine gestation with ultrasound gestational age of 7 weeks 5 days +/- 4 days. 2. Estimated date of delivery is 09/06/2022 +/- 4 days. 3. No maternal adnexal mass or pelvic ascites.
== END 2022-01-23 13:47 | disposition home or self-care (01) ==
LOC: HO.US 13:46
PROVIDERS: Visit Provider Obstetrics & Gynecology
DX: Z34.91 Encounter for supervision of normal pregnancy, unspecified, first trimester (principal); Z3A.01 Less than 8 weeks gestation of pregnancy
CPT/HCPCS: 76801; 99212

== ENCOUNTER 2022-02-06 11:03 | Outpatient (REF) | payer OTHER, SELFPAY ==
[2022-02-06 13:04] LABS: Glucose 1 Hour PP 50gm Dose 106 mg/dL (60-140)
[2022-02-06 13:16] LABS: Hemoglobin 13.3 g/dl (12.0-16.0); Mean Corpuscular HGB Conc 32.4 g/dl (31.0-35.0); Mean Corpuscular Volume 89.5 fL (80.0-98.0); Mean Platelet Volume 8.9 fL (9.4-12.3); Platelet Count 410 X10*3/uL (160-400); Red Blood Count 4.58 X10*6/uL (4.20-5.50); Red Cell Distribution Width 13.7 % (11.0-16.0); White Blood Count 9.8 X10*3/uL (4.8-10.8)
[2022-02-06 13:33] LABS: Syphilis Screen Reactive (Nonreactive)
[2022-02-06 14:33] LABS: Amphetamine Screen Urine Not Detected (Not Detect); Barbiturates, Urine Not Detected (Not Detect); Benzodiazepines Screen Urine Not Detected (Not Detect); Cannabinoid Screen Urine Not Detected (Not Detect); Cocaine Screen Urine Not Detected (Not Detect); Fentanyl, urine Not Detected (Not Detect); Opiate Screen Urine Not Detected (Not Detect); Phencyclidine Screen Urine Not Detected (Not Detect)
[2022-02-07 05:02] LABS: HIV AB/AG Nonreactive (Nonreactive); HIV Num 1 0.07 S/CO (0.00-0.99); Hepatitis B Surface Antigen Negative (Negative); ~HepC Num1 0.11 S/CO (0.00-0.79); ~Hepatitis C Antibody Nonreactive (Nonreactive)
[2022-02-08 05:46] LABS: Rubella IgG Antibody 2.09 Index
[2022-02-14 07:57] LABS: RPR Quantitative Reactive 1:1 (Nonreactive); T.Pallidum Particle Agg Test Reactive (Nonreactive)
== END 2022-02-06 11:04 | disposition home or self-care (01) ==
LOC: HO.LAB 11:03
PROVIDERS: PCP Internal Medicine; Visit Provider Obstetrics & Gynecology
DX: O09.529 Supervision of elderly multigravida, unspecified trimester (principal)
CPT/HCPCS: 80307; 85027; 86592; 86762; 86780; 86787; 86803; 86850; 86900; 87086; 87340; 87389

== ENCOUNTER 2022-02-13 09:07 | Outpatient (REF) | payer OTHER, SELFPAY ==
--- NOTE | ~2022-02-13 | US_ITS ---
EXAMINATION: US OBSTETRICAL ULTRASOUND CLINICAL INFORMATION: Encounter for supervision normal COMPARISON: Previous study 01/23/2022 LMP: Unknown. Gestational age by maternal dates is . Estimated date of delivery by maternal dates is . TECHNIQUE: Transabdominal first trimester OB ultrasound FINDINGS: There is a single intrauterine gestational sac with visible yolk sac, embryo/fetus, and cardiac activity. There is no significant subchorionic hemorrhage or hematoma. HR: 150 beats per minute. CRL (crown rump length): 3.7 cm (10 weeks 5 days +/- 4 days). YOLI (estimated date of delivery): 09/06/2022 +/- 4 days. MATERNAL ADNEXA: The right maternal ovary measures 4 x 1.9 x 3 cm. The left maternal ovary measures 2.3 x 1.8 x 2.5 cm. There is no significant maternal adnexal mass. No maternal pelvic ascites. US/US OB <= 14 weeks fetus IMPRESSION: 1. Single intrauterine gestation with ultrasound gestational age of 0109/06/2022 +/- 4 days. 2. Estimated date of delivery is 10 weeks 5 days +/- 4 days. 3. No maternal adnexal mass or pelvic ascites.
[2022-02-13 15:56] LABS: CT PCR NOT DETECTED (Not Detect.); NG PCR NOT DETECTED (Not Detect.)
[2022-02-19 02:13] LABS: HPV mRNA E6/E7 rflx Not Detected (Not Detected)
== END 2022-02-13 09:08 | disposition home or self-care (01) ==
LOC: HO.LAB 09:07
PROVIDERS: Visit Provider Advanced Practice Midwife
DX: O09.521 Supervision of elderly multigravida, first trimester (principal); O99.211 Obesity complicating pregnancy, first trimester; Z87.59 Personal history of other complications of pregnancy, childbirth and the puerperium; Z3A.10 10 weeks gestation of pregnancy
CPT/HCPCS: 76801; 87491; 87591; 87624; 88142; 99212

== ENCOUNTER 2022-02-15 10:25 | Outpatient (REF) | payer OTHER, SELFPAY ==
--- NOTE | ~2022-02-15 | US_ITS ---
EXAMINATION: OBSTETRICAL ULTRASOUND, FIRST TRIMESTER HISTORY: 36-year-old at 11.0 weeks of gestation NT screening High BMI COMPARISON: 02/13/2022 TECHNIQUE: Real time transabdominal imaging with color and M-mode Doppler. FINDINGS: A single, live IUP CRL of 40.6 mm c/w 11.0wks is noted. Heart Rate: 155 beats per minute. Normal yolk sac seen. NT was 1.3.mm. NB Present The embryo appears sonographically wnl for this GA. Both maternal ovaries are seen and appear normal. Small subchorionic bleed noted. GESTATIONAL AGE: 1. Established GA: 11.0 wks 2. GA from AUA: 11.0 wks ESTIMATED DATE OF DELIVERY: 1. Established YOLI: 09/06/2022 2. YOLI from AUA: 09/06/2022 US/US OB 1T nuc measure IMPRESSION: 1. A single live IUP 2. Size equals dates 3. NT of 1.3 mm MFM Consultation: I reviewed the ultrasound findings along with significance of NT measurement. The NT of less than 3mm is generally reassuring. However, the sensitivity for T21 detection is only 60%. I reviewed the availability of serum aneuploidy screening which includes cell-free DNA and placental protein based tests. I discussed the sensitivity, false-positive rate, and other limitations associated with each test. I also reviewed the availability of invasive diagnostic tests that are associated small but definite risk of miscarriage. We also reviewed the differences between screening tests and diagnostic tests. After our discussion, she opted for the First trimester screening that is based on cell-free DNA or non-invasive testing (NIPT). The result will be faxed to your office in approximately 7 days. A follow up at 18 weeks for survey has been scheduled. Thank you very much for this referral. Total time 20 minutes. The time spent was devoted to counseling the patient about the disease and diagnosis, coordinating care including reviewing her records, pertinent lab data and studies, as well as discussing diagnostic evaluation and workup, plan therapeutic interventions and future disposition of care. This includes any additional research needed to obtain further information in formulating the plan of care of this patient. This note was generated with a voice recognition program. Please excuse any errors which may have been overlooked during my review of this note. Sometimes these errors may affect the content or meaning of a given sentence.
== END 2022-02-15 10:26 | disposition home or self-care (01) ==
LOC: HO.US 10:25
PROVIDERS: PCP Internal Medicine; Visit Provider Obstetrics & Gynecology
DX: Z34.91 Encounter for supervision of normal pregnancy, unspecified, first trimester (principal); Z3A.11 11 weeks gestation of pregnancy
CPT/HCPCS: 76813

== ENCOUNTER 2022-02-18 17:38 | Emergency (ER) | payer OTHER, SELFPAY ==
[2022-02-18 17:44] VITALS: BP 127/80; PULSE 102; RESP 18; TEMP 37.2; O2SAT 99; BMI 38.7
[2022-02-18 18:04] LABS: MANUAL DIFF FLAG NO
[2022-02-18 18:09] LABS: Basophils Percent Auto 0.2 % (0-2); Eosinophils Percent Auto 0.3 % (0-4); Hematocrit 39.5 % (37.0-47.0); Imm Gran Abs Auto 0.09 X10*3/uL (0.00-0.03); Imm Gran Pct Auto 0.7 % (0.0-0.4); Lymphocytes Absolute Auto 0.9 X10*3/uL (1.2-4.9); Lymphocytes Percent Auto 6.5 % (20-40); Mean Corpuscular HGB Conc 32.9 g/dl (31.0-35.0); Mean Corpuscular Hemoglobin 29.1 pg (27.0-33.0); Mean Corpuscular Volume 88.4 fL (80.0-98.0); Mean Platelet Volume 8.7 fL (9.4-12.3); Monocytes Absolute Auto 0.9 X10*3/uL (0.1-1.2); Monocytes Percent Auto 6.8 % (2-11); Neutrophils Absolute Auto 11.8 x10*3/uL (2.0-8.3); Neutrophils Percent Auto 85.5 % (45-73); Platelet Count 343 X10*3/uL (160-400); Red Blood Count 4.47 X10*6/uL (4.20-5.50); Red Cell Distribution Width 13.8 % (11.0-16.0); White Blood Count 13.8 X10*3/uL (4.8-10.8)
[2022-02-18 18:22] LABS: Anion Gap 11 (12-20); Blood Urea Nitrogen 5 mg/dL (9-16); Calcium 8.6 mg/dL (8.4-10.2); Carbon Dioxide 22 mmol/L (22-29); Chloride 105 mmol/L (96-108); Creatinine Clr Calc Pharmacy 152.2; Estimated Glomerular Filt Rate > 60; Glucose Random 80 mg/dL (60-115); Potassium 4.4 mmol/L (3.3-5.1); Sodium 134 mmol/L (135-145)
--- NOTE | 2022-02-18 20:08 | ED.NAVMDI ---
HPI - Nausea/Vomiting/Diarrhea General Chief complaint: Nausea/Vomiting/Diarrhea Stated complaint: Diarrhea Time Seen by Provider: 02/18/22 19:15 Source: patient Mode of arrival: ambulatory Limitations: no limitations History of Present Illness HPI Narrative: The 6-year-old female who is 11 weeks presents to the ER with diarrhea that started at 05:00 today. She reports having approximately 15 episodes of very loose watery bowel movements. She states this started after she ate hot dogs from a [employer] at around midnight last night. She reports generalized abdominal cramping that starts a few minutes before she has a bowel movement. It subsides after she has a bowel movement. She has no blood in her stools but reports some blood when she wipes now that her bottom is raw. She denies any vomiting or nausea. No fever or chills. She is able to drink but it ?goes right through me. ? MD elicited complaint: diarrhea and abdominal pain Onset (ago): hour(s) Description of diarrhea: watery Associated abdominal pain: Yes Location of pain: diffuse Radiation: diffuse Pain consistency: intermittent Severity: moderate Quality: cramping Exacerbating factors: bowel movement Context: possible food poisoning Associated symptoms: denies other symptoms Related Data Home Medications Medication Instructions Recorded Confirmed prenat.vits,bertha,[id number] 1 tab PO DAILY 01/14/22 02/06/22 Previous Rx's Medication Instructions Recorded aspirin 81 mg chewable tablet 162 mg PO DAILY #60 tabs 02/13/22 (Aspirin Childrens) aspirin 81 mg chewable tablet 162 mg PO DAILY #60 tabs 02/13/22 (Aspirin Childrens) Allergies Allergy/AdvReac Type Severity Reaction Status Date / Time Penicillins [PENICILLINS] Allergy Unknown PASSED OUT Verified 02/13/22 08:41 Review of Systems Review of Systems: Constitutional: No Fever, No Chills Cardiovascular: No Chest Pain, No SOB Respiratory: No Cough, No Sputum, No Wheezing, No dyspnea Gastrointestinal: No Nausea, No Vomiting, + Diarrhea, +abdominal Pain, No Hematochezia, No Melena Genitourinary: No Dysuria, No Urinary Frequency, No Hematuria Musculoskeletal: No joint pain, No Myalgias Skin: No Skin Lesions, No rash Neuro: + Weakness, No Numbness, No Dizziness, No Headache Psych: No Anxiety/Panic, No Depression Heme/Lymph: No Bruising, No Lymphadenopathy Endocrine: No Polyuria, No Polydipsia [facility] Past Medical History Medical History Morbid obesity due to excess calories Surgical History History of cholecystectomy History of extraction of renal calculus Family History Family History Mother Hypertension Heart disease Anxiety Asthma Father No problems noted. Brother No problems noted. Brother No problems noted. Brother No problems noted. Brother No problems noted. Brother No problems noted. Sister No problems noted. Sister No problems noted. Sister No problems noted. Sister No problems noted. Sister No problems noted. Sister No problems noted. Son No problems noted. Social History Social History Household Members: Spouse Are you a primary neurocritical care physician to a significant other at home: No Do you presently have visiting nurse or other home services: No Alcohol intake: never Patient Tobacco Use Status: Never used Tobacco Advance Directives: No Advance Directives Information Provided: No Physical Exam Vital Signs: Vital Signs: Last Vital Signs Temp 98.9 F 02/18/22 17:44 Pulse 80 02/18/22 20:37 Resp 14 02/18/22 20:37 BP 117/69 02/18/22 20:37 Pulse Ox 100 02/18/22 20:37 O2 Del Method 02/18/22 20:37 BMI result Body Mass Index 38.7 Appearance: Alert. Oriented X3. No acute distress. Eyes: Pupils equal, round and reactive to light. ENT: Pharynx normal. Neck: Normal inspection. Neck supple. CVS: Normal heart rate and rhythm. Pulses normal. Respiratory: No respiratory distress. Breath sounds normal. Abdomen: Soft and nontender. +BS x4 Skin: Skin warm and dry. Normal skin color. Normal skin turgor. No rashes. Extremities: No lower extremity edema. Neuro: Oriented X 3. No motor deficit. No sensory deficit. Course Course Course Narrative: 36 yo female presenting with non-bloody diarrhea and abdominal cramping that started at 5am today after eating hot dogs from a [employer]. No abdominal tenderness and her VS are normal, she appears well. Labs show WBC 13.8, most likely reactive. Will hydrate and reassess. Limited in treatments for diarrhea due to the . She has no lower abdominal pain, cramping or vaginal bleeding. She follows with Dr. Patton. Reevaluation(s) Reevaluation #1: She is tolerating p.o.. Her diarrhea start to slow down but she did have some watery, mucoid stool which was sent to the lab for culture, C diff and WBCs. At this time she is stable for discharge home with supportive care. Encouraged brat diet. Will call if stool culture grows any concerning bacteria current antibiotics. Stable for discharge home. MDM - Nausea/Vomiting/Diarrhea Lab Data Result diagrams: 02/18/22 17:52 02/18/22 17:52 Labs: Lab Results 02/18/22 02/18/22 Range/Units 17:52 17:52 WBC 13.8 H (4.8-10.8) X10*3/uL RBC 4.47 (4.20-5.50) X10*6/uL Hgb 13.0 (12.0-16.0) g/dl Hct 39.5 (37.0-47.0) % MCV 88.4 (80.0-98.0) fL MCH 29.1 (27.0-33.0) pg MCHC 32.9 (31.0-35.0) g/dl RDW 13.8 (11.0-16.0) % Plt Count 343 (160-400) X10*3/uL MPV 8.7 L (9.4-12.3) fL Immature Gran % (Auto) 0.7 H (0.0-0.4) % Neut % (Auto) 85.5 H (45-73) % Lymph % (Auto) 6.5 L (20-40) % Sebastian % (Auto) 6.8 (2-11) % Eos % (Auto) 0.3 (0-4) % Baso % (Auto) 0.2 (0-2) % Lymph # (Auto) 0.9 L (1.2-4.9) X10*3/uL Sebastian # (Auto) 0.9 (0.1-1.2) X10*3/uL Eos # (Auto) 0.0 (0.0-0.4) X10*3/uL Baso # (Auto) 0.0 (0.0-0.2) X10*3/uL Abs Immat Gran (auto) 0.09 H (0.00-0.03) X10*3/uL Absolute Neuts (auto) 11.8 H (2.0-8.3) x10*3/uL Absolute Nucleated RBC 0.000 (0.0-0.012) X10*3/uL Nucleated RBC % (auto) 0.0 (0.0-0.2) /100WBC Sodium 134 L (135-145) mmol/L Potassium 4.4 (3.3-5.1) mmol/L Chloride 105 (96-108) mmol/L Carbon Dioxide 22 (22-29) mmol/L Anion Gap 11 L (12-20) BUN 5 L D (9-16) mg/dL Creatinine 0.59 (0.5-1.4) mg/dL Estim Creat Clear Calc 152.2 Estimated GFR > 60 Random Glucose 80 (60-115) mg/dL Calcium 8.6 (8.4-10.2) mg/dL Total Bilirubin 0.4 (0.0-1.0) mg/dL Direct Bilirubin 0.2 (0.0-0.5) mg/dL AST 22 (5-31) U/L ALT 22 (0-31) U/L Alkaline Phosphatase 75 (39-117) U/L Total Protein 7.4 (6.5-8.0) g/dL Albumin 3.6 (3.5-5.0) g/dL Lipase 19 (8-78) U/L Critical Care Time Critical Care Time Critical Care Time: No Discharge Plan Discharge Clinical Impression: Diarrhea Patient Disposition: Home, Self-Care Instructions: Acute Diarrhea (ED) Additional Instructions: If your stool culture grows any concerning bacteria, we will call you and start you on the appropriate antibiotic. Stick to a bland diet while you are not feeling well Drink plenty of fluids Follow up with your [employer] If you develop new or worsening symptoms call 911 or come back to the ER for further evaluation. Prescriptions: No Action prenat.vits,bertha,[id number] Tablet 1 tab PO DAILY aspirin [Aspirin Childrens] 81 mg tablet,chewable 162 mg PO DAILY Qty: 60 7RF Rx Instructions: start 2 tabs daily at bedtime at 14-16weeks and continue daily until 2 weeks aspirin [Aspirin Childrens] 81 mg tablet,chewable 162 mg PO DAILY Qty: 60 7RF Rx Instructions: start 2 tabs daily at bedtime at 14-16weeks and continue daily until 2 weeks
[2022-02-18 20:19] LABS: Alanine Aminotransferase 22 U/L (0-31); Albumin Level 3.6 g/dL (3.5-5.0); Alkaline Phosphatase 75 U/L (39-117); Aspartate Amino Transferase 22 U/L (5-31); Bilirubin Direct 0.2 mg/dL (0.0-0.5); Bilirubin Total 0.4 mg/dL (0.0-1.0); Lipase 19 U/L (8-78); Total Protein 7.4 g/dL (6.5-8.0)
[2022-02-18] MEDS: 0.9 % Sodium Chloride 1,000 ML 999 ML IVCONT (20:27)
[2022-02-18 20:37] VITALS: BP 117/69; PULSE 80; RESP 14; O2SAT 100
[2022-02-18 23:12] VITALS: BP 128/62; PULSE 94; RESP 14; TEMP 36.6; O2SAT 100
[2022-02-18 23:25] LABS: Leukocytes Stool Qualitative NEGATIVE (NEGATIVE)
[2022-02-18 23:37] LABS: CDiff Gene PCR NEGATIVE (Negative)
== END 2022-02-18 23:22 | disposition home or self-care (01) ==
PROVIDERS: Physician Assistant; Emergency Provider Internal Medicine; PCP Internal Medicine
DX: O26.91 Pregnancy related conditions, unspecified, first trimester (principal); Z3A.11 11 weeks gestation of pregnancy; R19.7 Diarrhea, unspecified; Z20.822 Contact with and (suspected) exposure to COVID-19; Z79.899 Other long term (current) drug therapy
CPT/HCPCS: 36415; 80048; 80076; 83690; 85025; 87045; 87046; 87493; 89055; 99283

== ENCOUNTER 2022-02-19 15:56 | Emergency (ER) | payer OTHER, SELFPAY ==
--- NOTE | ~2022-02-19 | US_ITS ---
EXAMINATION: US OBSTETRICAL ULTRASOUND CLINICAL INFORMATION: Vaginal bleeding. COMPARISON: Previous exam most recent 02/15/2022. LMP: Unknown. Gestational age by maternal dates is . Estimated date of delivery by maternal dates is . TECHNIQUE: Transabdominal first trimester OB ultrasound FINDINGS: There is a single intrauterine gestational sac with visible yolk sac, embryo/fetus, and cardiac activity. There is no significant subchorionic hemorrhage or hematoma. HR: 146 beats per minute. CRL (crown rump length): 5 cm (11 weeks 6 days +/- 4 days). YOLI (estimated date of delivery): 10 11/02/2022 +/- 4 days. MATERNAL ADNEXA: The right maternal ovary measures 3.4 x 2.3 x 2.2 cm. The left maternal ovary measures 2.3 x 2.1 x 2.3 cm. There is no significant maternal adnexal mass. No maternal pelvic ascites. US/US OB <= 14 weeks fetus IMPRESSION: 1. Single intrauterine gestation with ultrasound gestational age of 11 weeks 6 days +/- 4 days. 2. Estimated date of delivery is 09/04/2022 +/- 4 days. 3. No maternal adnexal mass or pelvic ascites.
[2022-02-19 16:11] VITALS: BP 141/91; PULSE 86; RESP 18; TEMP 36.9; O2SAT 98; BMI 38.7
[2022-02-19 20:21] LABS: MANUAL DIFF FLAG NO
[2022-02-19 20:39] LABS: Alanine Aminotransferase 19 U/L (0-31); Albumin Level 3.6 g/dL (3.5-5.0); Alkaline Phosphatase 69 U/L (39-117); Anion Gap 10 (12-20); Aspartate Amino Transferase 18 U/L (5-31); Basophils Percent Auto 0.4 % (0-2); Bilirubin Total 0.3 mg/dL (0.0-1.0); Blood Urea Nitrogen 4 mg/dL (9-16); Calcium 8.7 mg/dL (8.4-10.2); Carbon Dioxide 25 mmol/L (22-29); Chloride 104 mmol/L (96-108); Creatinine Clr Calc Pharmacy 140.3; Eosinophils Absolute Auto 0.1 X10*3/uL (0.0-0.4); Eosinophils Percent Auto 1.3 % (0-4); Estimated Glomerular Filt Rate > 60; Glucose Random 70 mg/dL (60-115); Hematocrit 40.5 % (37.0-47.0); Hemoglobin 13.3 g/dl (12.0-16.0); Imm Gran Abs Auto 0.12 X10*3/uL (0.00-0.03); Imm Gran Pct Auto 1.1 % (0.0-0.4); Lymphocytes Absolute Auto 2.1 X10*3/uL (1.2-4.9); Lymphocytes Percent Auto 19.9 % (20-40); Mean Corpuscular HGB Conc 32.8 g/dl (31.0-35.0); Mean Corpuscular Hemoglobin 29.3 pg (27.0-33.0); Mean Corpuscular Volume 89.2 fL (80.0-98.0); Mean Platelet Volume 8.8 fL (9.4-12.3); Monocytes Absolute Auto 1.1 X10*3/uL (0.1-1.2); Monocytes Percent Auto 10.5 % (2-11); Neutrophils Absolute Auto 7.2 x10*3/uL (2.0-8.3); Neutrophils Percent Auto 66.8 % (45-73); Platelet Count 374 X10*3/uL (160-400); Potassium 4.1 mmol/L (3.3-5.1); Red Blood Count 4.54 X10*6/uL (4.20-5.50); Red Cell Distribution Width 13.8 % (11.0-16.0); Sodium 135 mmol/L (135-145); Total Protein 7.5 g/dL (6.5-8.0); White Blood Count 10.7 X10*3/uL (4.8-10.8)
--- NOTE | 2022-02-19 21:33 | ED_ITS ---
HPI - Female Genitourinary General Chief complaint: Vaginal Bleeding Stated complaint: vaginal bleeding Time Seen by Provider: 02/19/22 21:05 Source: patient Mode of arrival: ambulatory Limitations: no limitations History of Present Illness HPI Narrative: 36-year-old female miscarriages 1 currently about 11 weeks and 4 days presents to the emergency department with complaints of diarrhea and vaginal bleeding. Patient tells me the diarrhea has been going on for 2 days. Patient tells me vaginal bleeding started today around 15:00. She tells me that she was wiping when she went to the bathroom and she noticed that she had dark red blood clots while wiping, she tells me it looked like her period. she tells me she reach out to her OBGYN who told her to come in to be evaluated. Patient told me that her last is scared happened at around 4 months. He tells me she is receiving care, and she has had an ultrasound confirming intrauterine . She reports that today she has gone through 1 pad since 15:00. She is also reporting abdominal discomfort when she defecates however when she is notdefecating she denies abdominal pain. Denies fevers, chills, chest pain, shortness of breath, nausea, vomiting, weakness. MD elicited complaint: vaginal bleeding Onset (ago): hour(s) Severity: mild Exacerbating factors: none Relieving factors: none Treatment prior to arrival: none Patient : Yes Possible : at home test positive Related Data : 2 Para: 0 Total number of abortions (spontaneous and elective): 1 Home Medications Medication Instructions Recorded Confirmed prenat.vits,bertha,[id number] 1 tab PO DAILY 01/14/22 02/06/22 Previous Rx's Medication Instructions Recorded aspirin 81 mg chewable tablet 162 mg PO DAILY #60 tabs 02/13/22 (Aspirin Childrens) aspirin 81 mg chewable tablet 162 mg PO DAILY #60 tabs 02/13/22 (Aspirin Childrens) Allergies Allergy/AdvReac Type Severity Reaction Status Date / Time Penicillins [PENICILLINS] Allergy Unknown PASSED OUT Verified 02/13/22 08:41 Review of Systems Review of Systems: Constitutional : No Weight loss, No Fever, No Chills, No Fatigue, No Malaise ENT/Mouth : No sore throat, No Rhinorrhea Eyes: No Eye Pain, No Swelling, No Redness Cardiovascular : No Chest Pain, No SOB, No Dyspnea on Exertion, No Orthopnea, No Edema, No Palpitations Respiratory : No Cough, No Sputum, No Wheezing Gastrointestinal : No Nausea, No Vomiting, No Diarrhea, No Constipation, No abdominal Pain, No Hematochezia, No Melena Genitourinary : No Dysuria, No Urinary Frequency, No Hematuria,+ vaginal bleeding Musculoskeletal : No joint pain, No Myalgias, No Joint Swelling Skin : No Skin Lesions, No rash Neuro : No Weakness, No Numbness, No Dizziness, No Headache Psych : No Anxiety/Panic, No Depression All other systems reviewed and are negative Yes all other systems are reviewed and are negative [facility] Past Medical History Attestation statement: The following information was validated with the patient. Source: old records reviewed and nursing notes reviewed Surgical History History of cholecystectomy History of extraction of renal calculus : 2 Para: 0 Total number of abortions (spontaneous and elective): 1 Family History Family History Mother Hypertension Heart disease Anxiety Asthma Father No problems noted. Brother No problems noted. Brother No problems noted. Brother No problems noted. Brother No problems noted. Brother No problems noted. Sister No problems noted. Sister No problems noted. Sister No problems noted. Sister No problems noted. Sister No problems noted. Sister No problems noted. Son No problems noted. Social History Social History Household Members: Spouse Are you a primary chiropractic care to a significant other at home: No Do you presently have visiting nurse or other home services: No Alcohol intake: never Patient Tobacco Use Status: Never used Tobacco Advance Directives: No Advance Directives Information Provided: No Patient : Yes Physical Exam Vital Signs: Vital Signs: Last Vital Signs Temp 98.4 F 02/19/22 16:11 Pulse 86 02/19/22 16:11 Resp 18 02/19/22 16:11 BP 141/91 H 02/19/22 16:11 Pulse Ox 98 02/19/22 16:11 O2 Del Method 02/19/22 16:11 BMI result Body Mass Index 38.7 Vital signs stable. Appearance: Alert.? Oriented X3.? No acute distress.? Head: Normocephalic, atraumatic, no step-offs or deformities Eyes: Pupils equal, round and reactive to light.? ENT: Pharynx normal.? Neck: Normal inspection.? Neck supple.? CVS: Normal heart rate and rhythm.? Pulses normal.? Respiratory: No respiratory distress.? Breath sounds normal.? Abdomen: Soft and nontender.? Skin: Skin warm and dry.? Normal skin color.? Normal skin turgor.? Sensitive exam: Normal external genitalia, cervical os closed , unable to visualize products of conception in the cervical os, No blood in the vaginal canal or cervix, no overlying skin lesions or skin abnormalities. Bimanual exam with no acute findings. Extremities: No lower extremity edema.? No calf ttp. 5/5 strength to bilateral upper and lower extremities Neuro: Oriented X 3.? No motor deficit.? No sensory deficit. CN 2-12 intact Course Reevaluation(s) Reevaluation #1: CBC appears to be at patient's baseline, no anemia. Chemistry with no acute electrolyte abnormalities. Beta hCG 54,220. Ob transvaginal ultrasound pending. Time: 21:47 Reevaluation #2: ultrasound with a single intrauterine gestation with ultrasound gestational age of 11 weeks and 6 days +/-4 days, estimated date of delivery is 09/04/2022 +/-4 days. No maternal adnexal mass or pelvic ascites appreciated. Plan at this time is to discharge patient home with prompt OBGYN follow-up, educated her on worrisome signs and symptoms and when to return. At this time patient will be discharged home outlined worrisome signs and symptoms on discharge. Comfortable discharge Time: 22:06 Reevaluation #3: To note patient's stool cultures are still pending, she will be called with a bnormal results. Tolerating p.o.. Advised her to follow a bland diet,/brat diet. Comfortable discharge home Time: 22:10 MDM - Female Genitourinary MDM Narrative Medical decision making narrative: 2144 36 yo f M1 presents w/ scant vaginal bleeding since 3 pm and diarrhea X2 days Physical exam with soft nontender nondistended abdomen, Normal external genitalia, cervical os closed , unable to visualize products of conception in the cervical os, No blood in the vaginal canal or cervix, no overlying skin lesions or skin abnormalities. Bimanual exam with no acute findings. Regular rate and rhythm. Lungs clear. Neuro exam nonfocal. Plan at this time is labs, pelvic ultrasound, hCG. Medical Records Attestation: I reviewed the patient's medical records. Lab Data Attestation: I reviewed the patient's lab results. Result diagrams: 02/19/22 20:16 02/19/22 20:16 Labs: Lab Results 02/19/22 02/19/22 Range/Units 20:16 20:16 WBC 10.7 (4.8-10.8) X10*3/uL RBC 4.54 (4.20-5.50) X10*6/uL Hgb 13.3 (12.0-16.0) g/dl Hct 40.5 (37.0-47.0) % MCV 89.2 (80.0-98.0) fL MCH 29.3 (27.0-33.0) pg MCHC 32.8 (31.0-35.0) g/dl RDW 13.8 (11.0-16.0) % Plt Count 374 (160-400) X10*3/uL MPV 8.8 L (9.4-12.3) fL Immature Gran % (Auto) 1.1 H (0.0-0.4) % Neut % (Auto) 66.8 (45-73) % Lymph % (Auto) 19.9 L (20-40) % Towns % (Auto) 10.5 (2-11) % Eos % (Auto) 1.3 (0-4) % Baso % (Auto) 0.4 (0-2) % Lymph # (Auto) 2.1 (1.2-4.9) X10*3/uL Towns # (Auto) 1.1 (0.1-1.2) X10*3/uL Eos # (Auto) 0.1 (0.0-0.4) X10*3/uL Baso # (Auto) 0.0 (0.0-0.2) X10*3/uL Abs Immat Gran (auto) 0.12 H (0.00-0.03) X10*3/uL Absolute Neuts (auto) 7.2 (2.0-8.3) x10*3/uL Absolute Nucleated RBC 0.000 (0.0-0.012) X10*3/uL Nucleated RBC % (auto) 0.0 (0.0-0.2) /100WBC Sodium 135 (135-145) mmol/L Potassium 4.1 (3.3-5.1) mmol/L Chloride 104 (96-108) mmol/L Carbon Dioxide 25 (22-29) mmol/L Anion Gap 10 L (12-20) BUN 4 L (9-16) mg/dL Creatinine 0.64 (0.5-1.4) mg/dL Estim Creat Clear Calc 140.3 Estimated GFR > 60 Random Glucose 70 (60-115) mg/dL Calcium 8.7 (8.4-10.2) mg/dL Total Bilirubin 0.3 (0.0-1.0) mg/dL AST 18 (5-31) U/L ALT 19 (0-31) U/L Alkaline Phosphatase 69 (39-117) U/L Total Protein 7.5 (6.5-8.0) g/dL Albumin 3.6 (3.5-5.0) g/dL Beta HCG, Quant 26425 mIU/mL Critical Care Time Critical Care Time Critical Care Time: No Discharge Plan Discharge Clinical Impression: Vaginal bleeding during , Diarrhea, Intrauterine Patient Disposition: Home, Self-Care Instructions: (ED), Acute Diarrhea (ED), Acute Abdominal Pain (ED), at 11 to 14 Weeks (ED) Additional Instructions: Take your medications as prescribed. If you were prescribed antibiotics today, it is important that you take your medication to their entirety, do not skip any doses, do not finish them early. Follow-up with your primary care provider this week. Follow-up with OBGYN tomorrow. Continue taking vitamins. Return to the emergency department with new or worsening symptoms. Such as fevers, chills, chest pain, shortness of breath, nausea, vomiting, dizziness, headache, vision changes, lethargy, worsening vaginal bleeding, abdominal pain If your bleeding through more than 2 pads an hour having significant vaginal bleeding you return to the emergency department immediately. In case of emergency call 911 Follow a bland diet, stool cultures pending US/US OB <= 14 weeks fetus IMPRESSION: 1. Single intrauterine gestation with ultrasound gestational age of? 11 weeks 6 days +/- 4 days. 2. Estimated date of delivery is 09/04/2022 +/- 4 days. 3. No maternal adnexal mass or pelvic ascites. Prescriptions: No Action prenat.vits,bertha,[id number] Tablet 1 tab PO DAILY aspirin [Aspirin Childrens] 81 mg tablet,chewable 162 mg PO DAILY Qty: 60 7RF Rx Instructions: start 2 tabs daily at bedtime at 14-16weeks and continue daily until 2 weeks aspirin [Aspirin Childrens] 81 mg tablet,chewable 162 mg PO DAILY Qty: 60 7RF Rx Instructions: start 2 tabs daily at bedtime at 14-16weeks and continue daily until 2 weeks Referrals: Nadine Bowie MD [Primary Care Provider] - 2 days Pacheco Patton MD [Physician] - 1 day Stand Alone Forms: Work/School Release
== END 2022-02-19 22:25 | disposition home or self-care (01) ==
PROVIDERS: Emergency Provider Emergency Medicine Emergency Medical Services; PCP Internal Medicine
DX: O20.9 Hemorrhage in early pregnancy, unspecified (principal); Z3A.11 11 weeks gestation of pregnancy; N93.9 Abnormal uterine and vaginal bleeding, unspecified
CPT/HCPCS: 36415; 76801; 80053; 84702; 85025; 99282; 99283; 99284

== ENCOUNTER → 2022-02-21 12:14 | Outpatient (BNVA) | payer OTHER, SELFPAY | PROVIDERS: PCP Internal Medicine; Visit Provider Obstetrics & Gynecology | DX: O09.511 Supervision of elderly primigravida, first trimester (principal); O09.291 Supervision of pregnancy with other poor reproductive or obstetric history, first trimester; O99.211 Obesity complicating pregnancy, first trimester; O98.111 Syphilis complicating pregnancy, first trimester; Z3A.10 10 weeks gestation of pregnancy | CPT/HCPCS: 99212 ==

== ENCOUNTER → 2022-03-14 11:12 | Outpatient (BNVA) | payer OTHER, SELFPAY | PROVIDERS: PCP Internal Medicine; Visit Provider Advanced Practice Midwife | DX: O99.211 Obesity complicating pregnancy, first trimester (principal); E66.01 Morbid (severe) obesity due to excess calories; Z3A.14 14 weeks gestation of pregnancy | CPT/HCPCS: 81003; 99212 ==

== ENCOUNTER → 2022-04-11 09:32 | Outpatient (BNVA) | payer OTHER, SELFPAY | PROVIDERS: PCP Internal Medicine; Visit Provider Advanced Practice Midwife | DX: Z34.92 Encounter for supervision of normal pregnancy, unspecified, second trimester (principal); Z3A.18 18 weeks gestation of pregnancy | CPT/HCPCS: 81003; 99212 ==

== ENCOUNTER 2023-01-18 20:59 | Emergency (ER) | payer OTHER, SELFPAY ==
[2023-01-18 21:02] VITALS: BP 133/80; PULSE 87; RESP 18; TEMP 36.3; O2SAT 99; BMI 37.4
[2023-01-18 21:26] LABS: MANUAL DIFF FLAG NO
[2023-01-18 21:28] LABS: Basophils Percent Auto 0.4 % (0-2); Eosinophils Absolute Auto 0.3 X10*3/uL (0.0-0.4); Eosinophils Percent Auto 2.5 % (0-4); Hematocrit 37.6 % (37.0-47.0); Hemoglobin 12.4 g/dl (12.0-16.0); Imm Gran Abs Auto 0.04 X10*3/uL (0.00-0.03); Imm Gran Pct Auto 0.4 % (0.0-0.4); Lymphocytes Absolute Auto 2.4 X10*3/uL (1.2-4.9); Lymphocytes Percent Auto 22.9 % (20-40); Mean Corpuscular Hemoglobin 28.4 pg (27.0-33.0); Mean Platelet Volume 8.4 fL (9.4-12.3); Monocytes Absolute Auto 0.8 X10*3/uL (0.1-1.2); Monocytes Percent Auto 7.8 % (2-11); Platelet Count 386 X10*3/uL (160-400); Red Blood Count 4.37 X10*6/uL (4.20-5.50); Red Cell Distribution Width 13.6 % (11.0-16.0); White Blood Count 10.6 X10*3/uL (4.8-10.8)
[2023-01-18 21:29] LABS: Appearance Urine Cloudy; Color Urine Yellow; Glucose Urine UA Negative (Negative); Leukocyte Esterase Urine Trace (Negative); Nitrite Urine Negative (Negative); PH 6.5 (5.0-9.0); Specific Gravity - Urine 1.025 (1.005-1.025); UMIC TRIGGER UACC YES; Urine Blood Moderate (2+) (Negative); Urine Ketones Trace mg/dL (Negative); Urine Protein Negative (Neg-Trace)
[2023-01-18 21:40] LABS: Bacteria Urine 1+ (None Seen); Hyaline Casts Urine 0-2 /LPF (0-2); WBC Urine 0-5 /HPF (0-5)
[2023-01-18 21:47] LABS: Anion Gap 10 (12-20); Blood Urea Nitrogen 7 mg/dL (9-16); Calcium 9.1 mg/dL (8.4-10.2); Carbon Dioxide 27 mmol/L (22-29); Chloride 106 mmol/L (96-108); Creatinine Clr Calc Pharmacy 124.4; Estimated Glomerular Filt Rate > 60; Glucose Random 107 mg/dL (60-115); Sodium 139 mmol/L (135-145)
[2023-01-18 21:48] LABS: HCG Quantitative 8099 mIU/mL
--- NOTE | 2023-01-18 23:00 | ED_ITS ---
HPI - General Adult General Chief complaint: Vaginal Bleeding Stated complaint: Vaginal bleeding/ Time Seen by Provider: 01/18/23 22:32 Source: patient, RN notes reviewed and old records reviewed Mode of arrival: ambulatory Limitations: no limitations History of Present Illness HPI narrative: 37-year-old female presents for evaluation of vaginal bleeding. Patient reports that she is She states that she is approximately 12 weeks She is followed at [facility] for OBGYN She states that today while wiping after using the bathroom she noticed some bleeding on the toilet paper? some very small clots. ? She reports some mild pelvic discomfort Patient reports that she had an ultrasound about 3 weeks ago which confirmed intrauterine Patient reports that her blood type is O positive She has no other complaints or concerns at this time. Related Data Home Medications Medication Instructions Recorded Confirmed prenat.vits,bertha,[id number] 1 tab PO DAILY 01/14/22 02/06/22 Previous Rx's Medication Instructions Recorded aspirin 81 mg chewable tablet 162 mg PO DAILY #60 tabs 02/13/22 (Aspirin Childrens) Allergies Allergy/AdvReac Type Severity Reaction Status Date / Time Penicillins [PENICILLINS] Allergy Unknown PASSED OUT Verified 01/18/23 21:02 Review of Systems Constitutional: Constitutional: Reports as per HPI, Denies chills, Denies fatigue, Denies fever(s) and Denies headache(s) ENT: Denies headache(s) Cardiovascular: Cardiovascular: Denies chest pain and Denies dyspnea Respiratory: Respiratory: Denies cough and Denies dyspnea Gastrointestinal: Gastrointestinal: Denies abdominal pain, Denies constipation and Denies vomiting Genitourinary: Genitourinary: Denies dysuria Comments: Reports vaginal bleeding in Neurologic: Denies headache(s) and Denies focal weakness Endocrine: Endocrine: Denies fatigue PMF Past Medical History Medical History (Updated 01/18/23 @ 23:07 by En Londono) Morbid obesity due to excess calories Surgical History History of cholecystectomy History of extraction of renal calculus Family History Family History Mother Hypertension Heart disease Anxiety Asthma Father No problems noted. Brother No problems noted. Brother No problems noted. Brother No problems noted. Brother No problems noted. Brother No problems noted. Sister No problems noted. Sister No problems noted. Sister No problems noted. Sister No problems noted. Sister No problems noted. Sister No problems noted. Son No problems noted. Social History Social History Household Members: Spouse Are you a primary workforce investment act career manager to a significant other at home: No Do you presently have visiting nurse or other home services: No Alcohol intake: never Patient Tobacco Use Status: Never used Tobacco Advance Directives: No Advance Directives Information Provided: Yes Physical Exam ED Vital Signs: Vital Signs - 24 hr 01/18/23 21:02 Temperature 97.4 F Pulse Rate 87 Respiratory Rate 18 Blood Pressure 133/80 Pulse Oximetry 99 Oxygen Delivery Method Room Air BMI result Body Mass Index 37.4 Const General: healthy appearing, comfortable, no acute distress, alert and awake Nutritional Appearance: well nourished Orientation/consciousness: patient oriented x3 Eyes Eyelids: Yes eyelids normal Conjunctivae: conjunctivae normal Sclerae: sclerae normal Corneas: corneas normal Pupils: Equal, round and reactive pupils present EOM: EOMs intact bilaterally Cardio Rate: regular rate Rhythm: regular rhythm GI Inspection: No distended Palpation (GI): Soft to palpation, not firm, nontender, no guarding and not rigid Auscultation: normoactive bowel sounds Skin General skin exam: no rashes or lesions noted and elasticity normal Neuro General: patient oriented x3 Cranial nerves: Yes CN's II-XII intact bilaterally, Yes Equal, round and reac tive pupils present and Yes Bilaterally intact EOM present Cognition (Neuro): normal cognition Extrem Other: Moving all extremities well without any obvious deformities Medical Decision Making Medical Decision Making MDM Narrative: 37-year-old female presents for evaluation of vaginal bleeding in . Patient reports that she has already had an intrauterine confirmed. Given the vaginal bleeding there is concern for threatened miscarriage. Unfortunate ultrasound is not available to assess for imminent miscarriage or to assess stability of the fetus. However given the patient had an intrauterine confirmed, there is low suspicion for ectopic . She reports that she is blood type O positive so will not need RhoGAM. The patient vital signs are stable, she is well-appearing. The patient can safely be discharged to return in 3-4 days for repeat hCG level and ultrasound at that time if necessary. Differential Diagnosis Threatened miscarriage Spontaneous Vaginal bleeding in Dysmenorrhea Lab Data MDM Lab Attestation statement: I reviewed the patient's lab results. 01/18/23 21:19 01/18/23 21:19 Labs: Lab Results 01/18/23 01/18/23 01/18/23 Range/Units 21:19 21:19 21:22 WBC 10.6 (4.8-10.8) X10*3/uL RBC 4.37 (4.20-5.50) X10*6/uL Hgb 12.4 (12.0-16.0) g/dl Hct 37.6 (37.0-47.0) % MCV 86.0 (80.0-98.0) fL MCH 28.4 (27.0-33.0) pg MCHC 33.0 (31.0-35.0) g/dl RDW 13.6 (11.0-16.0) % Plt Count 386 (160-400) X10*3/uL MPV 8.4 L (9.4-12.3) fL Immature Gran % (Auto) 0.4 (0.0-0.4) % Neut % (Auto) 66.0 (45-73) % Lymph % (Auto) 22.9 (20-40) % [place] % (Auto) 7.8 (2-11) % Eos % (Auto) 2.5 (0-4) % Baso % (Auto) 0.4 (0-2) % Lymph # (Auto) 2.4 (1.2-4.9) X10*3/uL [place] # (Auto) 0.8 (0.1-1.2) X10*3/uL Eos # (Auto) 0.3 (0.0-0.4) X10*3/uL Baso # (Auto) 0.0 (0.0-0.2) X10*3/uL Abs Immat Gran (auto) 0.04 H (0.00-0.03) X10*3/uL Absolute Neuts (auto) 7.0 (2.0-8.3) x10*3/uL Absolute Nucleated RBC 0.000 (0.0-0.012) X10*3/uL Nucleated RBC % (auto) 0.0 (0.0-0.2) /100WBC Sodium 139 (135-145) mmol/L Potassium 4.0 (3.3-5.1) mmol/L Chloride 106 (96-108) mmol/L Carbon Dioxide 27 (22-29) mmol/L Anion Gap 10 L (12-20) BUN 7 L (9-16) mg/dL Creatinine 0.70 (0.5-1.4) mg/dL Estim Creat Clear Calc 124.4 Estimated GFR > 60 Random Glucose 107 (60-115) mg/dL Calcium 9.1 (8.4-10.2) mg/dL Beta HCG, Quant 8099 mIU/mL Urine Color Yellow Urine Appearance Cloudy Urine pH 6.5 (5.0-9.0) Ur Specific [place] 1.025 (1.005-1.025) Urine Protein Negative (Neg-Trace) mg/dL Urine Glucose (UA) Negative (Negative) mg/dL Urine Ketones Trace (Negative) mg/dL Urine Blood Moderate (2+) H (Negative) Urine Nitrite Negative (Negative) Ur Leukocyte Esterase Trace H (Negative) Urine RBC 3-5 H (0-2) /HPF Urine WBC 0-5 (0-5) /HPF Ur Squamous Epith Cells 3-5 (0-2) /HPF Urine Bacteria 1+ (None Seen) Hyaline Casts 0-2 (0-2) /LPF Discharge Plan Discharge Clinical Impression: Threatened miscarriage Patient Disposition: Home, Self-Care Instructions: Threatened Miscarriage (ED) Additional Instructions: Bleeding in can be concerning for a potential miscarriage However, it is not always indicative of a miscarriage Your serum hCG level was a 8099 today. Return in 3-4 days to repeat a serum hCG level and possibly ultrasound at that time. Your hCG level should double approximately every 2 days. Return for new or worsening symptoms Prescriptions: No Action prenat.vits,bertha,[id number] Tablet 1 tab PO DAILY aspirin [Aspirin Childrens] 81 mg tablet,chewable 162 mg PO DAILY Qty: 60 7RF Rx Instructions: start 2 tabs daily at bedtime at 14-16weeks and continue daily until 2 weeks
== END 2023-01-18 23:17 | disposition home or self-care (01) ==
PROVIDERS: Emergency Provider Internal Medicine; PCP Internal Medicine
DX: O20.0 Threatened abortion (principal); Z3A.12 12 weeks gestation of pregnancy
CPT/HCPCS: 36415; 80048; 81001; 84702; 85025; 99282; 99283

== ENCOUNTER 2023-05-01 11:14 | Emergency (ER) | payer OTHER, SELFPAY ==
[2023-05-01 11:16] VITALS: BP 131/67; PULSE 91; RESP 16; TEMP 36.9; O2SAT 100; BMI 42.2
--- NOTE | 2023-05-01 11:22 | ED_ITS ---
HPI - General Adult General Chief complaint: Eye Problems Stated complaint: L eye pain Time Seen by Provider: 05/01/23 11:44 Source: patient Limitations: no limitations History of Present Illness HPI narrative: 37-year-old female who recently had burning itching left eye greater than right eye 10 month was recently diagnosed with conjunctivitis. Positive crustation inlet closure is this morning full fever chills or other complaints at this time Related Data Home Medications Medication Instructions Recorded Confirmed prenat.vits,bertha,[id number] 1 tab PO DAILY 01/14/22 02/06/22 Previous Rx's Medication Instructions Recorded aspirin 81 mg chewable tablet 162 mg PO DAILY #60 tabs 02/13/22 (Aspirin Childrens) polymyxin B sulfate 10,000 1 drp ophthalmic (eye) Q3H 7 days 05/01/23 unit-trimethoprim 1 mg/mL eye drops #10 mL Allergies Allergy/AdvReac Type Severity Reaction Status Date / Time Penicillins [PENICILLINS] Allergy Unknown PASSED OUT Verified 05/01/23 11:22 Review of Systems Review of Systems: General: No fever, no chills Ophthalmology: Positive discharge positive lid encrustations GI: no nausea vomiting, no diarrhea : No dysuria, no urgency, no frequency Psychiatric: No depression, no suicidal ideation, no homicidal ideation Skin: No rash PMFSH Past Medical History Medical History Morbid obesity due to excess calories Surgical History History of cholecystectomy History of extraction of renal calculus Family History Family History Mother Hypertension Heart disease Anxiety Asthma Father No problems noted. Brother No problems noted. Brother No problems noted. Brother No problems noted. Brother No problems noted. Brother No problems noted. Sister No problems noted. Sister No problems noted. Sister No problems noted. Sister No problems noted. Sister No problems noted. Sister No problems noted. Son No problems noted. Social History Social History Household Members: Spouse Are you a primary skin care technician to a significant other at home: No Do you presently have visiting nurse or other home services: No Alcohol intake: never Patient Tobacco Use Status: Never used Tobacco Advance Directives: No Physical Exam ED Vital Signs: Vital Signs - 24 hr 05/01/23 11:16 Temperature 98.5 F Pulse Rate 91 Respiratory Rate 16 Blood Pressure 131/67 Pulse Oximetry 100 Oxygen Delivery Method Room Air BMI result Body Mass Index 42.2 General appearance: Awake, alert, cooperative, in no acute distress Skin: Warm, dry, no rash Eyes: Left eye sclera injected slight edema noted excoriations are on the lead right eye less so scar is subjective. ENT: Oropharynx normal, uvula midline Neck: Soft supple full range of motion Pulmonary: no accessory muscle use Neuro: Alert oriented x3, no focal deficit Psych: Normal affect Course Course Course Narrative: RME: 37 yold female presents to the ED for LEft eye pain since yesterday without any trauma. patient states slight blurry vision. Patient states woke up with eye close shut with crusting. patient denies wearing contacts. Eyes not red. patinet states daughter has pink eye. Patient will be seen in [facility] for rest of eye exam such as florscein dye if indidcated. Medical Decision Making Medical Decision Making [facility] Narrative: Differential diagnosis: Conjunctivitis Iritis Viral conjunctivitis 29-year-old female with known exposure conjunctivitis from [id number] daughter with left eye edema greater than right sclera was also injected with crustation is 0 lids in this morning. Will place on polymyxin eyedrops at this time Discharge Plan Discharge Clinical Impression: Bilateral conjunctivitis Patient Disposition: Home, Self-Care Instructions: Conjunctivitis (ED) Additional Instructions: Use eyedrops as directed in treat both eyes Use good handwashing techniques Review wear contact lenses dispose of them and put new incision once fully treated Prescriptions: New polymyxin B sulf-trimethoprim 10,000 unit- 1 mg/mL drops 1 drp ophthalmic (eye) Q3H 7 Days Qty: 10 0RF Rx Instructions: while awake; do not exceed 6 doses in 24 hours No Action prenat.vits,bertha,[id number] Tablet 1 tab PO DAILY aspirin [Aspirin Childrens] 81 mg tablet,chewable 162 mg PO DAILY Qty: 60 7RF Rx Instructions: start 2 tabs daily at bedtime at 14-16weeks and continue daily until 2 weeks Stand Alone Forms: Work/School Release Interventions: ED Discharge Assessment Last Done: 05/01/23 12:03 Discharge Date/Time: 05/01/23 12:04
--- NOTE | 2023-05-01 11:41 | PC.NURSE ---
Patient alert and oriented. Reports left sided eye pain and swelling that started yesterday and has gotten worse. rates pain at 8/10. States 10 month old daughter has pink eye also. Upon waking up this morning patient reports that left eye was crusted over.
== END 2023-05-01 12:04 | disposition home or self-care (01) ==
PROVIDERS: Emergency Provider Emergency Medicine; PCP Internal Medicine
DX: H10.89 Other conjunctivitis (principal)
CPT/HCPCS: 99283

== ENCOUNTER 2024-10-27 15:49 | Emergency (ER) | payer OTHER, SELFPAY ==
--- NOTE | ~2024-10-27 | US_ITS ---
CLINICAL HISTORY: Right flank pain US Renal Comparison: None Findings: Right kidney normal size and echotexture, 12.3 cm length. Left kidney normal size and echotexture, 11.6 cm length. No hydronephrosis of either kidney. Normal color Doppler IMPRESSION: 1. Normal kidneys. This document has been electronically signed by: Valerio Lilly MD on 10/27/2024 20:38:07
[2024-10-27 15:56] VITALS: BP 146/91; PULSE 77; RESP 18; TEMP 35.8; O2SAT 99; BMI 36.0
--- NOTE | 2024-10-27 15:58 | ED.GENADULT ---
HPI - General Adult General Chief complaint: Back Pain/Injury Stated complaint: Back pain Time Seen by Provider: 10/27/24 18:31 Source: patient Mode of arrival: ambulatory Limitations: no limitations History of Present Illness ED Provider: Helder FELIX narrative: 39-year-old female who is currently 3 weeks with past medical history of nephrolithiasis presents for right flank pain. Patient states she has been experiencing 3 days right lower back pain. She denies trauma in noticed the pain while going upstairs with the children. The pain has been getting progressively worse. Patient denies nausea, vomiting, chest pain, shortness of breath, abdominal pain, dysuria/hematuria. Patient states that this pain does feel slightly different than her prior kidney stones Related Data Home Medications ?Medication ?Instructions ?Recorded ?Confirmed prenat.vits,bertha,[id number] 1 tab PO DAILY 01/14/22 02/06/22 Previous Rx's ?Medication ?Instructions ?Recorded aspirin 81 mg chewable tablet 162 mg (2 x 81 mg) PO DAILY #60 02/13/22 (Aspirin Childrens) tabs polymyxin B sulfate 10,000 1 drp ophthalmic (eye) Q3H 7 days 05/01/23 unit-trimethoprim 1 mg/mL eye drops #10 mL lidocaine 4 % topical patch 1 patch topical DAILY PRN back 10/27/24 pain #30 ea Allergies Allergy/AdvReac Type Severity Reaction Status Date / Time Penicillins [PENICILLINS] Allergy Unknown PASSED OUT Verified 10/27/24 15:59 Review of Systems Review of Systems: Yes all other systems are reviewed and are negative [facility] Past Medical History Attestation statement: The following information was validated with the patient. [facility] Narrative: Nephrolithiasis Medical History Morbid obesity due to excess calories Surgical History History of cholecystectomy History of extraction of renal calculus Family History Family History Mother Hypertension Heart disease Anxiety Asthma Father No problems noted. Brother No problems noted. Brother No problems noted. Brother No problems noted. Brother No problems noted. Brother No problems noted. Sister No problems noted. Sister No problems noted. Sister No problems noted. Sister No problems noted. Sister No problems noted. Sister No problems noted. Son No problems noted. Social History Social History Household Members: Spouse Are you a primary health care specialist to a significant other at home: No Do you presently have visiting nurse or other home services: No Alcohol intake: never Patient Tobacco Use Status: Never used Tobacco Physical Exam ED Vital Signs: Vital Signs - 24 hr 10/27/24 15:56 10/27/24 19:48 Temperature 96.5 F L 97.5 F Pulse Rate 77 69 Respiratory Rate 18 18 Blood Pressure 146/91 H 131/81 Pulse Oximetry 99 98 Oxygen Delivery Method Room Air Room Air BMI result Body Mass Index 36.0 Well-appearing female in no acute distress Alert and orient x4; normal speech and cognition Lungs clear to auscultation bilaterally Normal S1-S2 regular rate and rhythm Abdomen is soft nontender nondistended Right CVA tenderness to palpation Course Course Course Narrative: RME, this is a rapid medical exam performed by Fernando Londono please refer to primary provider for complete H&P- [age] old female presents for evaluation of right-sided low back pain. she reports her symptoms started about 3 days ago and were at the worst yesterday. She denies any radiation of her pain, denies any associated nausea vomiting, diarrhea, abdominal pain, urinary complaints. She was approximately 3-1/2 weeks . she delivered at [facility], she was . Plan for basic labs and urinalysis. Her pain is most likely musculoskeletal in origin Medications Administered Discontinued Medications Generic Name Dose Route Start Last Admin Trade Name Freq PRN Reason Stop Dose Admin Acetaminophen 975 mg 10/27/24 18:46 10/27/24 19:32 Acetaminophen 325 Mg Tablet PO 10/27/24 18:47 975 mg ONCE ONE Administration Sodium Chloride 1,000 mls @ 999 mls/hr 10/27/24 19:00 10/27/24 20:54 Ns IV 10/27/24 20:00 Infused .Q1H1M KEE Infusion Lidocaine 1 patch 10/27/24 19:03 10/27/24 19:33 Lidocaine 4 % Patch Adh..Patch TRANSDERMA 10/27/24 19:04 1 patch ONCE ONE Administration Protocol Medical Decision Making Medical Decision Making MDM Narrative: MDM Narrative: 39-year-old female presenting for right lower back pain -I am concerned for the following; nephrolithiasis, hydronephrosis, UTI, biliary colic -I am also considering preeclampsia due to elevated BP however this could be 2/2 pain. Patient states she has been monitoring her blood pressure and it has been up and down and she [place] base with her OB weekly -labs and imaging studies ordered Lab and imaging interpretation -stable H&H, no white count, electrolytes within normal limits, normal creatinine, mildly elevated alk-phos however AST and ALT at baseline -I do not appreciate hydro on ultrasound and radiologist's impression reads normal kidneys -UA not concerning for UTI On reassessment pt reports improve Pt's symptoms could be 2/2 to stone however she has no hydro and her Cr is baseline. I do not believe she has an obstructing stone so will not pursue CT. Pt's symptoms could also be 2/2 msk pain given relief with lidocaine patch and tylenol. I don't think pt is preeclamptic as her BP improved without antihypertensive meds and she does not have significant proteinuria I do not believe patient needs admission. She is comfortable with being discharged. I gave her home care/followup instructions and return precautions. Lab Data 10/27/24 16:31 10/27/24 16:30 Labs: Lab Results 10/27/24 10/27/24 10/27/24 Range/Units 16:30 16:31 16:33 WBC 8.4 (4.8-10.8) X10*3/uL RBC 4.52 (4.20-5.50) X10*6/uL Hgb 11.3 L (12.0-16.0) g/dl Hct 37.0 (37.0-47.0) % MCV 81.9 (80.0-98.0) fL MCH 25.0 L (27.0-33.0) pg MCHC 30.5 L (31.0-35.0) g/dl RDW 15.4 (11.0-16.0) % Plt Count 414 H (160-400) X10*3/uL MPV 8.7 L (9.4-12.3) fL Immature Gran % (Auto) 0.2 (0.0-0.4) % Neut % (Auto) 65.4 (45-73) % Lymph % (Auto) 23.0 (20-40) % [place] % (Auto) 7.3 (2-11) % Eos % (Auto) 3.6 (0-4) % Baso % (Auto) 0.5 (0-2) % Lymph # (Auto) 1.9 (1.2-4.9) X10*3/uL [place] # (Auto) 0.6 (0.1-1.2) X10*3/uL Eos # (Auto) 0.3 (0.0-0.4) X10*3/uL Baso # (Auto) 0.0 (0.0-0.2) X10*3/uL Abs Immat Gran (auto) 0.02 (0.00-0.03) X10*3/uL Absolute Neuts (auto) 5.5 (2.0-8.3) x10*3/uL Absolute Nucleated RBC 0.000 (0.0-0.012) X10*3/uL Nucleated RBC % (auto) 0.0 (0.0-0.2) /100WBC Sodium 141 (135-145) mmol/L Potassium 3.9 (3.3-5.1) mmol/L Chloride 112 H (96-108) mmol/L Carbon Dioxide 25 (22-29) mmol/L Anion Gap 8 L (12-20) BUN 11 (9-16) mg/dL Creatinine 0.70 (0.5-1.4) mg/dL Estim Creat Clear Calc 119.5 Estimated GFR > 60 Random Glucose 84 (60-115) mg/dL Calcium 8.9 (8.4-10.2) mg/dL Magnesium 1.9 (1.6-2.6) mg/dL Total Bilirubin 0.3 (0.0-1.0) mg/dL Direct Bilirubin 0.1 (0.0-0.5) mg/dL AST 21 (5-31) U/L ALT 22 (0-31) U/L Alkaline Phosphatase 123 H (39-117) U/L Total Protein 8.1 H (6.5-8.0) g/dL Albumin 3.7 (3.5-5.0) g/dL Lipase 41 (8-78) U/L Beta HCG, Quant mIU/mL Urine Color Yellow Urine Appearance Clear Urine pH 6.0 (5.0-9.0) Ur Specific [place] 1.025 (1.005-1.025) Urine Protein Trace (Neg-Trace) mg/dL Urine Glucose (UA) Negative (Negative) mg/dL Urine Ketones Trace (Negative) mg/dL Urine Blood Moderate (2+) H (Negative) Urine Nitrite Negative (Negative) Ur Leukocyte Esterase Trace H (Negative) Urine RBC >20 H (0-2) /HPF Urine WBC 0-5 (0-5) /HPF Ur Squamous Epith Cells 0-2 (0-2) /HPF Urine Bacteria None Seen (None Seen) Hyaline Casts 0-2 (0-2) /LPF Ur Random Sodium 183.0 mmol/L Ur Random Potassium 53.9 mmol/L Ur Random Chloride 178.0 mmol/L 10/27/24 Range/Units 19:40 WBC (4.8-10.8) X10*3/uL RBC (4.20-5.50) X10*6/uL Hgb (12.0-16.0) g/dl Hct (37.0-47.0) % MCV (80.0-98.0) fL MCH (27.0-33.0) pg MCHC (31.0-35.0) g/dl RDW (11.0-16.0) % Plt Count (160-400) X10*3/uL MPV (9.4-12.3) fL Immature Gran % (Auto) (0.0-0.4) % Neut % (Auto) (45-73) % Lymph % (Auto) (20-40) % [place] % (Auto) (2-11) % Eos % (Auto) (0-4) % Baso % (Auto) (0-2) % Lymph # (Auto) (1.2-4.9) X10*3/uL [place] # (Auto) (0.1-1.2) X10*3/uL Eos # (Auto) (0.0-0.4) X10*3/uL Baso # (Auto) (0.0-0.2) X10*3/uL Abs Immat Gran (auto) (0.00-0.03) X10*3/uL Absolute Neuts (auto) (2.0-8.3) x10*3/uL Absolute Nucleated RBC (0.0-0.012) X10*3/uL Nucleated RBC % (auto) (0.0-0.2) /100WBC Sodium (135-145) mmol/L Potassium (3.3-5.1) mmol/L Chloride (96-108) mmol/L Carbon Dioxide (22-29) mmol/L Anion Gap (12-20) BUN (9-16) mg/dL Creatinine (0.5-1.4) mg/dL Estim Creat Clear Calc Estimated GFR Random Glucose (60-115) mg/dL Calcium (8.4-10.2) mg/dL Magnesium (1.6-2.6) mg/dL Total Bilirubin (0.0-1.0) mg/dL Direct Bilirubin (0.0-0.5) mg/dL AST (5-31) U/L ALT (0-31) U/L Alkaline Phosphatase (39-117) U/L Total Protein (6.5-8.0) g/dL Albumin (3.5-5.0) g/dL Lipase (8-78) U/L Beta HCG, Quant < 2 mIU/mL Urine Color Urine Appearance Urine pH (5.0-9.0) Ur Specific [place] (1.005-1.025) Urine Protein (Neg-Trace) mg/dL Urine Glucose (UA) (Negative) mg/dL Urine Ketones (Negative) mg/dL Urine Blood (Negative) Urine Nitrite (Negative) Ur Leukocyte Esterase (Negative) Urine RBC (0-2) /HPF Urine WBC (0-5) /HPF Ur Squamous Epith Cells (0-2) /HPF Urine Bacteria (None Seen) Hyaline Casts (0-2) /LPF Ur Random Sodium mmol/L Ur Random Potassium mmol/L Ur Random Chloride mmol/L Discharge Plan Discharge Clinical Impression: Lower back pain Qualifiers: Chronicity: acute Back pain laterality: right Sciatica presence: without sciatica Qualified Code(s): M54.50 - Low back pain, unspecified Patient Disposition: Home, Self-Care Additional Instructions: Please follow up with your outpatient providers in the next 24-48 hours for reassessment. If you develop any new or worsening symptoms please return to the emergency department I sent a prescription for lidocaine patches to pharmacy. If you use these please ensure that they do not come in contact with any of your children Prescriptions: New lidocaine 4 % adhesive patch,medicated 1 patch topical DAILY PRN (Reason: back pain) Qty: 30 0RF No Action polymyxin B sulf-trimethoprim 10,000 unit- 1 mg/mL drops 1 drp ophthalmic (eye) Q3H 7 Days Qty: 10 0RF Rx Instructions: while awake; do not exceed 6 doses in 24 hours prenat.vits,bertha,[id number] Tablet 1 tab PO DAILY aspirin [Aspirin Childrens] 81 mg tablet,chewable 162 mg PO DAILY Qty: 60 7RF Rx Instructions: start 2 tabs daily at bedtime at 14-16weeks and continue daily until 2 weeks Print Language: Pashto
[2024-10-27 16:44] LABS: MANUAL DIFF FLAG NO
[2024-10-27 16:47] LABS: Basophils Percent Auto 0.5 % (0-2); Eosinophils Absolute Auto 0.3 X10*3/uL (0.0-0.4); Eosinophils Percent Auto 3.6 % (0-4); Hemoglobin 11.3 g/dl (12.0-16.0); Imm Gran Abs Auto 0.02 X10*3/uL (0.00-0.03); Imm Gran Pct Auto 0.2 % (0.0-0.4); Lymphocytes Absolute Auto 1.9 X10*3/uL (1.2-4.9); Mean Corpuscular HGB Conc 30.5 g/dl (31.0-35.0); Mean Corpuscular Volume 81.9 fL (80.0-98.0); Mean Platelet Volume 8.7 fL (9.4-12.3); Monocytes Absolute Auto 0.6 X10*3/uL (0.1-1.2); Monocytes Percent Auto 7.3 % (2-11); Neutrophils Absolute Auto 5.5 x10*3/uL (2.0-8.3); Neutrophils Percent Auto 65.4 % (45-73); Platelet Count 414 X10*3/uL (160-400); Red Blood Count 4.52 X10*6/uL (4.20-5.50); Red Cell Distribution Width 15.4 % (11.0-16.0); White Blood Count 8.4 X10*3/uL (4.8-10.8)
[2024-10-27 16:47] LABS: Appearance Urine Clear; Color Urine Yellow; Glucose Urine UA Negative (Negative); Leukocyte Esterase Urine Trace (Negative); Nitrite Urine Negative (Negative); Specific Gravity - Urine 1.025 (1.005-1.025); UMIC TRIGGER UACC YES; Urine Blood Moderate (2+) (Negative); Urine Ketones Trace mg/dL (Negative); Urine Protein Trace mg/dL (Neg-Trace)
[2024-10-27 16:49] LABS: Bacteria Urine None Seen (None Seen); Hyaline Casts Urine 0-2 /LPF (0-2); RBC Urine >20 /HPF (0-2); Squamous Epithelial Cell Urine 0-2 /HPF (0-2); WBC Urine 0-5 /HPF (0-5)
[2024-10-27 17:01] LABS: Alanine Aminotransferase 22 U/L (0-31); Albumin Level 3.7 g/dL (3.5-5.0); Alkaline Phosphatase 123 U/L (39-117); Anion Gap 8 (12-20); Aspartate Amino Transferase 21 U/L (5-31); Bilirubin Total 0.3 mg/dL (0.0-1.0); Blood Urea Nitrogen 11 mg/dL (9-16); Calcium 8.9 mg/dL (8.4-10.2); Carbon Dioxide 25 mmol/L (22-29); Chloride 112 mmol/L (96-108); Creatinine Clr Calc Pharmacy 119.5; Estimated Glomerular Filt Rate > 60; Glucose Random 84 mg/dL (60-115); Lipase 41 U/L (8-78); Potassium 3.9 mmol/L (3.3-5.1); Sodium 141 mmol/L (135-145); Total Protein 8.1 g/dL (6.5-8.0)
--- NOTE | 2024-10-27 18:47 | ED.GENADULT ---
HPI - General Adult General Chief complaint: Back Pain/Injury Stated complaint: Back pain Time Seen by Provider: 10/27/24 18:31 Source: patient Mode of arrival: ambulatory Limitations: no limitations History of Present Illness ED Provider: Helder FELIX narrative: 39-year-old female who is currently 3 weeks with past medical history of nephrolithiasis presents for right flank pain. Patient states she has been experiencing 3 days right lower back pain. She denies trauma in noticed the pain while going upstairs with the children. The pain has been getting progressively worse. Patient denies nausea, vomiting, chest pain, shortness of breath, abdominal pain, dysuria/hematuria. Patient states that this pain does feel slightly different than her prior kidney stones Related Data Home Medications ?Medication ?Instructions ?Recorded ?Confirmed prenat.vits,bertha,[id number] 1 tab PO DAILY 01/14/22 02/06/22 Previous Rx's ?Medication ?Instructions ?Recorded aspirin 81 mg chewable tablet 162 mg (2 x 81 mg) PO DAILY #60 02/13/22 (Aspirin Childrens) tabs polymyxin B sulfate 10,000 1 drp ophthalmic (eye) Q3H 7 days 05/01/23 unit-trimethoprim 1 mg/mL eye drops #10 mL Allergies Allergy/AdvReac Type Severity Reaction Status Date / Time Penicillins [PENICILLINS] Allergy Unknown PASSED OUT Verified 10/27/24 15:59 Review of Systems Review of Systems: Yes all other systems are reviewed and are negative [facility] Past Medical History Medical History Morbid obesity due to excess calories Surgical History History of cholecystectomy History of extraction of renal calculus Family History Family History Mother Hypertension Heart disease Anxiety Asthma Father No problems noted. Brother No problems noted. Brother No problems noted. Brother No problems noted. Brother No problems noted. Brother No problems noted. Sister No problems noted. Sister No problems noted. Sister No problems noted. Sister No problems noted. Sister No problems noted. Sister No problems noted. Son No problems noted. Social History Social History Household Members: Spouse Are you a primary district manager primary care sales to a significant other at home: No Do you presently have visiting nurse or other home services: No Alcohol intake: never Patient Tobacco Use Status: Never used Tobacco Physical Exam ED Vital Signs: Vital Signs - 24 hr 10/27/24 15:56 Temperature 96.5 F L Pulse Rate 77 Respiratory Rate 18 Blood Pressure 146/91 H Pulse Oximetry 99 Oxygen Delivery Method Room Air BMI result Body Mass Index 36.0 Well-appearing female in no acute distress Alert and orient x4; normal speech and cognition Lungs clear to auscultation bilaterally Normal S1-S2 regular rate and rhythm Abdomen is soft nontender nondistended Right CVA tenderness to palpation Medical Decision Making Medical Decision Making MDM Narrative: 39-year-old female presenting for right lower back pain -I am concerned for the following; nephrolithiasis, hydronephrosis, UTI, biliary colic -labs and imaging studies ordered Lab and imaging interpretation - Lab Data 10/27/24 16:31 10/27/24 16:30 Labs: Lab Results 10/27/24 10/27/24 10/27/24 Range/Units 16:30 16:31 16:33 WBC 8.4 (4.8-10.8) X10*3/uL RBC 4.52 (4.20-5.50) X10*6/uL Hgb 11.3 L (12.0-16.0) g/dl Hct 37.0 (37.0-47.0) % MCV 81.9 (80.0-98.0) fL MCH 25.0 L (27.0-33.0) pg MCHC 30.5 L (31.0-35.0) g/dl RDW 15.4 (11.0-16.0) % Plt Count 414 H (160-400) X10*3/uL MPV 8.7 L (9.4-12.3) fL Immature Gran % (Auto) 0.2 (0.0-0.4) % Neut % (Auto) 65.4 (45-73) % Lymph % (Auto) 23.0 (20-40) % [place] % (Auto) 7.3 (2-11) % Eos % (Auto) 3.6 (0-4) % Baso % (Auto) 0.5 (0-2) % Lymph # (Auto) 1.9 (1.2-4.9) X10*3/uL [place] # (Auto) 0.6 (0.1-1.2) X10*3/uL Eos # (Auto) 0.3 (0.0-0.4) X10*3/uL Baso # (Auto) 0.0 (0.0-0.2) X10*3/uL Abs Immat Gran (auto) 0.02 (0.00-0.03) X10*3/uL Absolute Neuts (auto) 5.5 (2.0-8.3) x10*3/uL Absolute Nucleated RBC 0.000 (0.0-0.012) X10*3/uL Nucleated RBC % (auto) 0.0 (0.0-0.2) /100WBC Sodium 141 (135-145) mmol/L Potassium 3.9 (3.3-5.1) mmol/L Chloride 112 H (96-108) mmol/L Carbon Dioxide 25 (22-29) mmol/L Anion Gap 8 L (12-20) BUN 11 (9-16) mg/dL Creatinine 0.70 (0.5-1.4) mg/dL Estim Creat Clear Calc 119.5 Estimated GFR > 60 Random Glucose 84 (60-115) mg/dL Calcium 8.9 (8.4-10.2) mg/dL Total Bilirubin 0.3 (0.0-1.0) mg/dL AST 21 (5-31) U/L ALT 22 (0-31) U/L Alkaline Phosphatase 123 H (39-117) U/L Total Protein 8.1 H (6.5-8.0) g/dL Albumin 3.7 (3.5-5.0) g/dL Lipase 41 (8-78) U/L Urine Color Yellow Urine Appearance Clear Urine pH 6.0 (5.0-9.0) Ur Specific [place] 1.025 (1.005-1.025) Urine Protein Trace (Neg-Trace) mg/dL Urine Glucose (UA) Negative (Negative) mg/dL Urine Ketones Trace (Negative) mg/dL Urine Blood Moderate (2+) H (Negative) Urine Nitrite Negative (Negative) Ur Leukocyte Esterase Trace H (Negative) Urine RBC >20 H (0-2) /HPF Urine WBC 0-5 (0-5) /HPF Ur Squamous Epith Cells 0-2 (0-2) /HPF Urine Bacteria None Seen (None Seen) Hyaline Casts 0-2 (0-2) /LPF Discharge Plan Discharge Prescriptions: No Action polymyxin B sulf-trimethoprim 10,000 unit- 1 mg/mL drops 1 drp ophthalmic (eye) Q3H 7 Days Qty: 10 0RF Rx Instructions: while awake; do not exceed 6 doses in 24 hours prenat.vits,bertha,[id number] Tablet 1 tab PO DAILY aspirin [Aspirin Childrens] 81 mg tablet,chewable 162 mg PO DAILY Qty: 60 7RF Rx Instructions: start 2 tabs daily at bedtime at 14-16weeks and continue daily until 2 weeks Print Language: Gibraltarian
[2024-10-27 19:14] LABS: Bilirubin Direct 0.1 mg/dL (0.0-0.5); Magnesium 1.9 mg/dL (1.6-2.6)
[2024-10-27] MEDS: Acetaminophen 325 MG TABLET 975 MG PO (19:32)
[2024-10-27] MEDS: Lidocaine 4 % Patch ADH..PATCH 1 PATCH TRANSDERMA (19:33)
[2024-10-27] MEDS: 0.9 % Sodium Chloride 1,000 ML 999 ML IV (19:41)
[2024-10-27 19:48] VITALS: BP 131/81; PULSE 69; RESP 18; TEMP 36.4; O2SAT 98
--- NOTE | 2024-10-27 19:49 | PC.NURSE ---
Assumed care of this patient at 1900, IV placed, medicated per OCT, waiting for US results/ lab results. Called lab to have urine electrolytes added on.
[2024-10-27 19:58] LABS: Potassium Urine Random 53.9 mmol/L
[2024-10-27 20:06] LABS: HCG Quantitative < 2 mIU/mL
--- OUTSIDE RECORDS SUMMARY | 2024-10-27 20:06 | XMS_ITS | Clinical Summary ---
Author Organization [employer] [facility] Address [address] [place] [address] Care Team Providers Care Photographic Reproduction Technician Name Role Phone Nadine Bowie MD Primary Care Provider [phone] Allergies Active Allergy Reactions Criticality Noted Date Comments Penicillins 03/25/2024 I pass out Medications Medication Sig Dispensed Refills Start Date End Date Status Vit-Fe Fumarate-FA (M- Plus) 27-1 MG TABS Take 1 tablet by mouth daily. 0 02/24/2024 Active Active Problems Problem Noted Date Diagnosed Date Cervical insufficiency in , antepartum 03/25/2024 Comments Yes Social History Tobacco Use Types Packs/Day Years Used Date Smoking Tobacco: Never Smokeless Tobacco: Never Tobacco Cessation:Counseling Given: Not Answered Alcohol Use Standard Drinks/Week Comments Not Currently 0 (1 standard drink = 0.6 oz pur e alcohol) Comments Yes Sex and Gender Information Value Date Recorded Sex Assigned at Female 03/25/2024 4:51 PM EDT Gender Identity Not on file Sexual Orientation Not on file Job Start Date Occupation Industry Not on file Not on file Not on file Last Filed Vital Signs Vital Sign Reading Time Taken Comments Blood Pressure 95/49 03/27/2024 3:54 AM EDT Pulse 66 03/27/2024 3:54 AM EDT Temperature 36.7 ??C (98.1 ??F) 03/27/2024 3:54 AM ED T Respiratory Rate 18 03/27/2024 3:54 AM EDT Oxygen Saturation 99% 03/27/2024 3:54 AM EDT Inhaled Oxygen Concentration - - Weight 108 kg (238 lb) 03/25/2024 2:00 PM EDT Height 162.6 cm (5' 4 ) 03/25/2024 2:00 PM EDT Body Mass Index 40.85 03/25/2024 2:00 PM EDT Plan of Treatment Health Maintenance Due Date Last Done Comments Hepatitis B Vaccines (1 of 3 - 3-dose series) 1984 Hepatitis C Screening 1984 Depression Screening 1996 Preventative Health Evaluation 2002 Cervical Cancer Screening (P ap Smear) 2005 COVID-19 Vaccine (2 - 2023-2 5 season) 2024 12/11/2020 Influenza Vaccine (#1) 2024 05/30/2022 DTap / Tdap / Td (2 - Td or Tdap) 12/24/2027 018 RSV Adult > 60+ Yrs or Pregn ant (1 - 1-dose 75+ series) 2059 Pneumococcal Vaccine Aged Out No long er eligible based on patient's age to complete this topic RSV Ped < 20 months Aged Out No longe r eligible based on patient's age to complete this topic Advance Directives For more information, please contact: [phone] Latest Code Status on File Code Status Date Activated Date Inactivated Comments Full Code 03/26/2024 11:30 PM 03/27/2024 1:39 PM This code status was ascertained in the following way: discussion with patient . Care Teams Photographic Reproduction Technician Relationship Specialty Start Date End Date Nadine Bowie MD [address] [place] [id number] PCP - General Internal Medicine 03/26/24
--- OUTSIDE RECORDS SUMMARY | 2024-10-27 20:06 | XMS_ITS | Clinical Summary ---
Author Organization [employer] [facility] ity Address [address] [place] [address] Care Team Providers Care Arts Manager Name Role Phone Nadine Bowie MD Primary Care Provider Unava ilable Surgical History Surgery Date Site/Laterality Comments CERVICAL CERCLAGE PROCEDURE:CERVICAL CERCLAGE CHOLECYSTECTOMY PROCEDURE:CHOLECYSTECTOMY CERVICAL CERCLAGE 03/26/2024 N/A PROCEDURE:CERVICAL CERCLAGE;COMMENT:Procedure: CERCLAGE CERVIX PLACEMENT; Surgeon: Jerri Page MD; Location: [facility]; Service: Gynecology; Laterality: N/A; Time: 1 Hour Medical History Medical History Date Comments PCOS (polycystic ovarian syndrome) DX:PCOS (polycystic ovarian syndrome) Social History Tobacco Use Types Packs/Day Years Used Date Smoking Tobacco: Never Smokeless Tobacco: Never Alcohol Use Standard Drinks/Week Comments Not Currently 0 (1 standard drink = 0.6 oz pur e alcohol) Comments Unknown Sex and Gender Information Value Date Recorded Sex Assigned at Not on file Legal Sex Female 5:48 PM EST Gender Identity Not on file Sexual Orientation Not on file Obstetrics History Last Filed Vital Signs Vital Sign Reading Time Taken Comments Blood Pressure 121/82 03/01/2024 10:08 AM EDT Pulse 79 03/01/2024 10:08 AM EDT Temperature - - Respiratory Rate - - Oxygen Saturation - - Inhaled Oxygen Concentration - - Weight 105 kg (232 lb) 03/01/2024 10:08 AM EDT Height 162.6 cm (5' 4 ) 03/01/2024 10:08 AM EDT Body Mass Index 39.82 03/01/2024 10:08 AM EDT Plan of Treatment Health Maintenance Due Date Last Done Comments Breast Cancer Screening 1984 Hepatitis B Vaccines (1 of 3 - 19+ 3-dose series) 2003 Cholesterol Screening (Lipid Panel) 08/03/2022 Depression Screening 08/03/2022 HIV Screening 08/03/2022 Hepatitis C Screening 08/03/2022 Social Influencers of Health Screening 08/03/2022 COVID-19 Vaccine (2 - 2023-2 5 season) 2024 12/11/2020 Influenza Vaccine (#1) 2024 Cervical Cancer Screening: P ap Smear 03/05/2025 03/05/2022, 01/19/2018 DTaP,Tdap,and Td Vaccines (2 - Td or Tdap) 12/24/2027 12/23/2017 HIB Vaccines Aged Out No longer eligi ble based on patient's age to complete this topic HPV Vaccines Aged Out No longer eligi ble based on patient's age to complete this topic Hepatitis A Vaccines Aged Out No long er eligible based on patient's age to complete this topic IPV Vaccines Aged Out No longer eligi ble based on patient's age to complete this topic MMR Vaccines Aged Out No longer eligi ble based on patient's age to complete this topic Meningococcal ACWY Vaccine Aged Out N o longer eligible based on patient's age to complete this topic Meningococcal B Vacine Aged Out No lo nger eligible based on patient's age to complete this topic Pneumococcal Vaccine: Pediatrics (0 to 5 Years) and At-Risk Patients (6 to 64 Years) Aged Out No longer eligible b ased on patient's age to complete this topic RSV Immunization Patients Under 20 months Aged Out No longer eligible b ased on patient's age to complete this topic Varicella Vaccines Aged Out No longer eligible based on patient's age to complete this topic Procedures Procedure Name Priority Date/Time Associated Diagnosis Comments PAP SMEAR Routine 03/05/2022 from Last 3 Months or Most Recently Relevant to Health Maintenance Results * Pap smear (03/05/2022) 03/05/2022 Narrative HISTORICAL TESTING LAB RESULTING AGENCY - 03/13/2022 10:41 AM EDT [id number] THINPREP PAP, IMAGED: NEGATIVE FOR SQUAMOUS INTRAEPITHELIAL LESION AND MALIGNANCY. SHIFT IN MARK, SUGGESTIVE OF BACTERIAL VAGINOSIS. GEOVANNY SALINAS(ASCP) (CASE ELECTRONICALLY SIGNED 03 13 2022) RESULT OF APTIMA HIGH RISK HPV ASSAY: HIGH RISK HPV: ??NEGATIVE (SEROTYPES 16,18,31,33,35,39,45,51,52,56,58,59,66,68) COMPLETED ON 2022-03-07 ADEQUACY: SATISFACTORY ENDOCERVICAL/TRANSFORMATION ZONE COMPONENT PRESENT. SOURCE: THINPREP PAP HPV ANY DX: ??REFLEX 16 AND 18, CERVICAL, IMAGED CLINICAL INFORMATION: HPV ANY DIAGNOSIS. LMP 10/30/21, Z12.4 Robert Camarillo DO LAB CYTOLOGY ORDERABLES Final Result HISTORICAL TESTING LAB RESULTING AGENCY from Last 3 Months or Most Recently Relevant to Health Maintenance Care Teams Arts Manager Relationship Specialty Start Date End Date Nadine Bowie MD Need Updated Address PCP - General 03/26/24
[2024-10-27 21:29] VITALS: BP 118/73; PULSE 68; RESP 18; TEMP 36.4; O2SAT 100
[2024-10-27 21:33] VITALS: BP 118/73; PULSE 68; RESP 18; TEMP 36.4; O2SAT 100
== END 2024-10-27 21:39 | disposition home or self-care (01) ==
PROVIDERS: Physician Assistant; Emergency Provider Student in an Organized Health Care Education/Training Program
DX: M54.50 Low back pain, unspecified (principal); Z79.82 Long term (current) use of aspirin; Z79.899 Other long term (current) drug therapy
CPT/HCPCS: 36415; 76775; 80053; 81001; 82248; 82436; 83690; 83735; 84133; 84300; 84702; 85025; 96360; 99284

== ENCOUNTER → 2024-10-27 18:46 | Outpatient (BNV) | payer OTHER, SELFPAY | PROVIDERS: Emergency Provider Student in an Organized Health Care Education/Training Program; Visit Provider Radiology Diagnostic Radiology | DX: M54.50 Low back pain, unspecified (principal) | CPT/HCPCS: 76775 ==

== ENCOUNTER 2024-11-21 21:06 | Emergency (ER) | payer OTHER, SELFPAY ==
[2024-11-21 21:12] VITALS: BP 156/88; PULSE 63; RESP 16; TEMP 36.9; O2SAT 100; BMI 36.6
--- NOTE | 2024-11-21 21:21 | PC.NURSE ---
charge made aware of pt being post with h/a and elevated bp.
[2024-11-21 21:37] LABS: MANUAL DIFF FLAG NO
[2024-11-21 21:40] LABS: Appearance Urine Clear; Color Urine Yellow; Glucose Urine UA Negative (Negative); Leukocyte Esterase Urine Trace (Negative); Nitrite Urine Negative (Negative); UMIC TRIGGER UACC YES; Urine Blood Moderate (2+) (Negative); Urine Ketones Negative (Negative); Urine Protein Trace mg/dL (Neg-Trace)
[2024-11-21 21:41] LABS: Basophils Absolute Auto 0.1 X10*3/uL (0.0-0.2); Basophils Percent Auto 0.6 % (0-2); Eosinophils Absolute Auto 0.3 X10*3/uL (0.0-0.4); Eosinophils Percent Auto 2.8 % (0-4); Hematocrit 36.6 % (37.0-47.0); Hemoglobin 11.7 g/dl (12.0-16.0); Imm Gran Abs Auto 0.02 X10*3/uL (0.00-0.03); Imm Gran Pct Auto 0.2 % (0.0-0.4); Lymphocytes Absolute Auto 2.5 X10*3/uL (1.2-4.9); Lymphocytes Percent Auto 27.1 % (20-40); Mean Corpuscular Hemoglobin 25.3 pg (27.0-33.0); Mean Platelet Volume 8.6 fL (9.4-12.3); Monocytes Absolute Auto 0.5 X10*3/uL (0.1-1.2); Monocytes Percent Auto 5.8 % (2-11); Neutrophils Absolute Auto 5.7 x10*3/uL (2.0-8.3); Neutrophils Percent Auto 63.5 % (45-73); Platelet Count 444 X10*3/uL (160-400); Red Blood Count 4.63 X10*6/uL (4.20-5.50); Red Cell Distribution Width 16.1 % (11.0-16.0)
[2024-11-21 21:45] LABS: Bacteria Urine None Seen (None Seen); Hyaline Casts Urine 0-2 /LPF (0-2); RBC Urine >20 /HPF (0-2); Squamous Epithelial Cell Urine 0-2 /HPF (0-2); WBC Urine 0-5 /HPF (0-5)
[2024-11-21 21:53] LABS: Anion Gap 12 (12-20); Blood Urea Nitrogen 8 mg/dL (9-16); Calcium 8.8 mg/dL (8.4-10.2); Carbon Dioxide 24 mmol/L (22-29); Chloride 110 mmol/L (96-108); Creatinine Clr Calc Pharmacy 124.2; Estimated Glomerular Filt Rate > 60; Glucose Random 71 mg/dL (60-115); Potassium 3.9 mmol/L (3.3-5.1); Sodium 142 mmol/L (135-145)
--- NOTE | 2024-11-22 00:58 | ED.GENADULT ---
HPI - General Adult General Chief complaint: Headache Stated complaint: high bp / headache Time Seen by Provider: 11/22/24 00:57 History of Present Illness ED Provider: Asia FELIX narrative: The patient is a 39-year-old woman who is approximately 7 weeks . She delivered full-term vaginally on October 01. Apparently the patient was found to have some elevated blood pressure readings at around the time of delivery and was given a blood pressure machine when she was discharged. The patient says that her blood pressures has been running high since delivery. She says she does not have a previous history of hypertension. She says that she was advised by her supervisor public health nursing to make a follow up appointment with her PCP to discuss her blood pressure but she has not yet gotten an appointment with a PCP since delivery. The patient is . The patient says that she woke up this morning at around 5:45 AM. She says that at around 6:00 AM she noticed that she was developing a headache behind her eyes. The symptoms were mild at first but progressed over the next few hours until it was fairly severe. She says that at reached its maximal intensity at around 10:00 AM. That was the time that she 1st took acetaminophen. She says that the acetaminophen did not do very much to help her headache and she also was concerned because she checked her blood pressure at home and had high blood pressure readings at home and so ultimately she came to the emergency room tonight around 9:00 PM. The patient says that she does not have a significant history of headaches. She has not had any fever, sweats, chills. She has had no neck stiffness. No nausea or vomiting. No difficulty walking. No difficulty speaking. No weakness or numbness in her extremities. No visual abnormalities. She has noticed some photophobia however. Related Data Home Medications ?Medication ?Instructions ?Recorded ?Confirmed prenat.vits,bertha,[id number] 1 tab PO DAILY 01/14/22 02/06/22 Previous Rx's ?Medication ?Instructions ?Recorded aspirin 81 mg chewable tablet 162 mg (2 x 81 mg) PO DAILY #60 02/13/22 (Aspirin Childrens) tabs polymyxin B sulfate 10,000 1 drp ophthalmic (eye) Q3H 7 days 05/01/23 unit-trimethoprim 1 mg/mL eye drops #10 mL lidocaine 4 % topical patch 1 patch topical DAILY PRN back 10/27/24 pain #30 ea acetaminophen 500 mg capsule 1,000 mg (2 x 500 mg) PO Q8H PRN 11/22/24 fever or pain #20 caps ibuprofen 400 mg tablet 400 mg PO Q6H PRN pain #20 tabs 11/22/24 Allergies Allergy/AdvReac Type Severity Reaction Status Date / Time Penicillins [PENICILLINS] Allergy Unknown PASSED OUT Verified 11/21/24 21:14 Review of Systems Review of Systems: Yes all other systems are reviewed and are negative [facility] Past Medical History Medical History Morbid obesity due to excess calories Surgical History History of cholecystectomy History of extraction of renal calculus Family History Family History Mother Hypertension Heart disease Anxiety Asthma Father No problems noted. Brother No problems noted. Brother No problems noted. Brother No problems noted. Brother No problems noted. Brother No problems noted. Sister No problems noted. Sister No problems noted. Sister No problems noted. Sister No problems noted. Sister No problems noted. Sister No problems noted. Son No problems noted. Social History Social History Household Members: Spouse Are you a primary customer care specialist to a significant other at home: No Do you presently have visiting nurse or other home services: No Alcohol intake: never Patient Tobacco Use Status: Never used Tobacco Advance Directives: No Advance Directives Information Provided: No Do you have a plan to hurt others: No Plan Physical Exam ED Vital Signs: Vital Signs - 24 hr 11/21/24 21:12 11/22/24 01:05 Temperature 98.4 F Pulse Rate 63 73 Respiratory Rate 16 18 Blood Pressure 156/88 H 144/87 H Pulse Oximetry 100 98 Oxygen Delivery Method Room Air Room Air BMI result Body Mass Index 36.6 Const Other: The patient is awake, alert, pleasant, cooperative. She has a cheerful demeanor. She does not look ill or in distress or seem toxic in any way. HENMT Other: Face is symmetrical. Mucous membranes are moist. Pharynx is normal. Eyes Other: Pupils are round, equal, and reactive to light. Extraocular movements are intact. Funduscopic exam is normal. Neck Other: No neck tenderness. The neck is entirely supple. She can touch her chin to her chest very easily without any discomfort whatsoever. Resp Effort & Inspection: normal respiratory effort Auscultation: clear to auscultation bilaterally Cardio Rate: regular rate Rhythm: regular rhythm Heart sounds: S1 normal heart sound present and S2 normal heart sound present Skin Other: Skin is dry and unremarkable General skin exam: no rashes or lesions noted Neuro Other: The patient is awake, alert, pleasant, cooperative. Cognition and mentation and orientation are all normal. Pupils are round, equal, and reactive to light, extraocular movements are intact. The face is symmetrical. Speech is normal. Neck is supple. Strength is 5/5 in all 4 extremities. No pronator drift. Finger-nose is normal. Gait is normal. The patient seems entirely neurologically intact with a normal mental status and demeanor. Extrem Other: No peripheral edema Medications Administered Discontinued Medications Generic Name Dose Route Start Last Admin Trade Name Freq PRN Reason Stop Dose Admin Acetaminophen 975 mg 11/22/24 01:33 11/22/24 01:53 Acetaminophen 325 Mg Tablet PO 11/22/24 01:34 975 mg ONCE ONE Administration Ketorolac Tromethamine 20 mg 11/22/24 01:26 11/22/24 01:52 Ketorolac Tromethamine 30 Mg/Ml Vial IM 11/22/24 01:27 20 mg ONCE ONE Administration Medical Decision Making Medical Decision Making [facility] Narrative: The patient is a 39-year-old woman who does not have a past medical history of high blood pressure. She is currently approximately 7 weeks after delivering a baby vaginally on 10/01/2024. She says that she has been having intermittent high blood pressure readings since delivery. She has a blood pressure machine at home that was given to her by her supervisor public health nursing to monitor her high blood pressures. Today the patient presented with a headache. The headache began at around 06:00. The patient seems to describe a gradual onset headache that reached maximal intensity over the course of about 4 hours. She looks entirely well. She has a normal neurological exam. Her neck is entirely supple. She has no infectious symptoms. I do not think this headache is likely to represent either an acute subarachnoid hemorrhage or meningitis. The patient was cheerful and pleasant, often laughing. This may be some kind of a migraine headache. She is photophobic. I do not think she requires neuroimaging or a spinal tap. The patient was given an injection of ketorolac IM and a dose of acetaminophen orally. She will be discharged with a prescriptions for ibuprofen and acetaminophen. She is advised to contact her primary care doctor's office in the morning to arrange further evaluation of her blood pressure. She should return if worse. Lab Data 11/21/24 21:34 11/21/24 21:34 Labs: Lab Results 11/21/24 Range/Units 21:34 WBC 9.0 (4.8-10.8) X10*3/uL RBC 4.63 (4.20-5.50) X10*6/uL Hgb 11.7 L (12.0-16.0) g/dl Hct 36.6 L (37.0-47.0) % MCV 79.0 L (80.0-98.0) fL MCH 25.3 L (27.0-33.0) pg MCHC 32.0 (31.0-35.0) g/dl RDW 16.1 H (11.0-16.0) % Plt Count 444 H (160-400) X10*3/uL MPV 8.6 L (9.4-12.3) fL Immature Gran % (Auto) 0.2 (0.0-0.4) % Neut % (Auto) 63.5 (45-73) % Lymph % (Auto) 27.1 (20-40) % [place] % (Auto) 5.8 (2-11) % Eos % (Auto) 2.8 (0-4) % Baso % (Auto) 0.6 (0-2) % Lymph # (Auto) 2.5 (1.2-4.9) X10*3/uL [place] # (Auto) 0.5 (0.1-1.2) X10*3/uL Eos # (Auto) 0.3 (0.0-0.4) X10*3/uL Baso # (Auto) 0.1 (0.0-0.2) X10*3/uL Abs Immat Gran (auto) 0.02 (0.00-0.03) X10*3/uL Absolute Neuts (auto) 5.7 (2.0-8.3) x10*3/uL Absolute Nucleated RBC 0.000 (0.0-0.012) X10*3/uL Nucleated RBC % (auto) 0.0 (0.0-0.2) /100WBC Sodium 142 (135-145) mmol/L Potassium 3.9 (3.3-5.1) mmol/L Chloride 110 H (96-108) mmol/L Carbon Dioxide 24 (22-29) mmol/L Anion Gap 12 (12-20) BUN 8 L (9-16) mg/dL Creatinine 0.68 (0.5-1.4) mg/dL Estim Creat Clear Calc 124.2 Estimated GFR > 60 Random Glucose 71 (60-115) mg/dL Calcium 8.8 (8.4-10.2) mg/dL Total Bilirubin 0.2 (0.0-1.0) mg/dL Direct Bilirubin < 0.2 (0.0-0.5) mg/dL AST 22 (5-31) U/L ALT 19 (0-31) U/L Alkaline Phosphatase 121 H (39-117) U/L Total Protein 7.9 (6.5-8.0) g/dL Albumin 3.6 (3.5-5.0) g/dL Urine Color Yellow Urine Appearance Clear Urine pH 7.0 (5.0-9.0) Ur Specific [place] 1.020 (1.005-1.025) Urine Protein Trace (Neg-Trace) mg/dL Urine Glucose (UA) Negative (Negative) mg/dL Urine Ketones Negative (Negative) mg/dL Urine Blood Moderate (2+) H (Negative) Urine Nitrite Negative (Negative) Ur Leukocyte Esterase Trace H (Negative) Urine RBC >20 H (0-2) /HPF Urine WBC 0-5 (0-5) /HPF Ur Squamous Epith Cells 0-2 (0-2) /HPF Urine Bacteria None Seen (None Seen) Hyaline Casts 0-2 (0-2) /LPF Discharge Plan Discharge Clinical Impression: Headache, High blood pressure Patient Disposition: Home, Self-Care Additional Instructions: Your physical exam today is very reassuring. Your blood testing is unremarkable. I have sent a prescription for both acetaminophen and for ibuprofen to your pharmacy which you may use for headache. Your blood pressures were moderately high today but not severely so. Nevertheless please contact your regular doctor's office tomorrow morning to try to get a prompt follow up appointment for further consideration of your high blood pressure readings. Return to the emergency room if you feel significantly worse. Prescriptions: New ibuprofen 400 mg tablet 400 mg PO Q6H PRN (Reason: pain) Qty: 20 0RF acetaminophen 500 mg capsule 1,000 mg PO Q8H PRN (Reason: fever or pain) Qty: 20 0RF No Action polymyxin B sulf-trimethoprim 10,000 unit- 1 mg/mL drops 1 drp ophthalmic (eye) Q3H 7 Days Qty: 10 0RF Rx Instructions: while awake; do not exceed 6 doses in 24 hours lidocaine 4 % adhesive patch,medicated 1 patch topical DAILY PRN (Reason: back pain) Qty: 30 0RF prenat.vits,bertha,[id number] Tablet 1 tab PO DAILY aspirin [Aspirin Childrens] 81 mg tablet,chewable 162 mg PO DAILY Qty: 60 7RF Rx Instructions: start 2 tabs daily at bedtime at 14-16weeks and continue daily until 2 weeks Referrals: [facility]. Angie Staton [Provider Group] (hypertension, headache, 7 weeks post-) Print Language: Botswan[place]
[2024-11-22 01:05] VITALS: BP 144/87; PULSE 73; RESP 18; O2SAT 98
--- NOTE | 2024-11-22 01:06 | PC.NURSE ---
Pt ambulatory to [facility] for treatment, assumed care of pt at this time. Pt A&Ox3 skin pwd respirations even unlabored. Endorses headache beginning this morning, denies accompanying symptoms. Tylenol last at 1100 with no relief. Pt is 1.5 months post and reports HTN since giveing yet has not reported it to a provider. Labs drawn in [facility], results received, provider to bedside for primary eval.
[2024-11-22] MEDS: Ketorolac Tromethamine 30 MG/ML VIAL 20 MG IM (01:52)
[2024-11-22] MEDS: Acetaminophen 325 MG TABLET 975 MG PO (01:53)
[2024-11-22 02:07] LABS: Alanine Aminotransferase 19 U/L (0-31); Albumin Level 3.6 g/dL (3.5-5.0); Alkaline Phosphatase 121 U/L (39-117); Aspartate Amino Transferase 22 U/L (5-31); Bilirubin Direct < 0.2 mg/dL (0.0-0.5); Bilirubin Total 0.2 mg/dL (0.0-1.0); Total Protein 7.9 g/dL (6.5-8.0)
[2024-11-22 02:47] VITALS: BP 144/87; PULSE 73; RESP 18; TEMP 36.9; O2SAT 98
== END 2024-11-22 02:48 | disposition home or self-care (01) ==
PROVIDERS: Emergency Provider Emergency Medicine
DX: R51.9 Headache, unspecified (principal); R03.0 Elevated blood-pressure reading, without diagnosis of hypertension
CPT/HCPCS: 36415; 80048; 80076; 81001; 85025; 99284; J1885